=== PATIENT | female | born 1945 | race Caucasian/White ===

== ENCOUNTER → 2016-10-06 | Outpatient (CLI) | payer OTHER ==
[~2016-10-06] MED LIST: ASCO500T16 PO; HYDR25TA5 PO; LOSA50TA6 PO; POTA20TA16 PO; PRAV20TA PO; SITA50TA3 PO; TAMO20TA47 PO
[2016-10-06 13:16] VITALS: BP 127/81; PULSE 72; TEMP 37.2; O2SAT 96
--- NOTE | 2016-10-06 14:38 | Radiation Oncology Follow-Up ---
Radiation Oncology Follow-Up Date of Visit Oct 06, 2016. Reason For Visit Annual follow-up Radiation Completion Date APBI 11/29/13 Diagnosis (1) Stage I breast cancer Status: Resolved Onset Date: 09/24/2013 Stage: l Permanent Comment: Abnormal right breast mammogram Status post tear detected biopsy 09/24/2013 revealing invasive ductal carcinoma Status post partial mastectomy and sentinel lymph node biopsy 10/11/2013 Stage [id number], estrogen receptor positive, progesterone receptor positive, HER -2/reynaldo negative Status post completion of radiation therapy utilizing accelerated partial breast treatment completed 11/29/2013 received 3850 cGy Last Edited By: Danielle Hernandez on Jul 23, 2014 16:18 History of Present Illness Ms. Wright is a 70-year-old female who has been followed with screening mammograms. A recent mammogram performed at [facility] on 08/26/2013 revealed an abnormality in the upper-outer quadrant of the right breast. Spot films were recommended and performed on 09/03/2013. This showed a 5 mm density in the upper-outer quadrant of the right breast and was given a BI-RADS Category 4 with recommended biopsy. For that reason the patient was seen in referral by Dr. Sanju Aragon on 2013. The patient had no family history of breast cancer. Dr. Aragon recommended a stereotactic core needle biopsy and the patient agreed. On 09/24/2013 patient underwent a stereotactic biopsy. This revealed an invasive ductal carcinoma Natali grade 1 involving multiple cores measuring at least 0.7 cm in greatest dimension. 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 Estrogen receptors were positive at greater than 95% and progesterone receptors were positive at 95%. HER-2/reynaldo was negative with a score of 0. HER-2/reynaldo by FISH was also negative. There was no necrosis associated with the DCIS. Case: [id number]. After discussion of treatment options the patient chose to proceed with breast conserving therapy. Therefore on 10/11/2013 Dr. Aragon performed a right partial mastectomy and sentinel lymph node biopsy. These sentinel lymph node revealed no metastatic carcinoma. The partial mastectomy site tissue revealed no residual carcinoma identified. The margins were obviously negative. The final stage was therefore pT1b pN0 ER positive [place] positive HER-2/reynaldo negative. Case: [id number]. There is no role for systemic chemotherapy. The patient is to proceed with adjuvant hormonal therapy following the completion of her radiation. She returned and underwent a CT simulation. She was found to be a candidate for accelerated partial breast treatment. Radiation was completed 11/29/2013 she received 3850 cGy. Interim History She's been doing well over the past year. She denies any changes to her breast. She is noted no masses or tenderness no change in the axilla she's had no swelling of her arm. She is up-to-date on mammography. She continues to have hot flashes. This occurs especially at night. She tried vitamin E but that did not help. She had a mammogram at [facility] in [place] 2016. There is no evidence of malignancy. BI-RADS Category 2. She continues on tamoxifen. Allergies Coded Allergies: No Known Allergies (Unverified , 01/22/14) Home Medications Scheduled Ascorbic Acid (Ascorbic Acid), 500 MG PO DAILY Hydrochlorothiazide (Hydrochlorothiazide), 25 MG PO DAILY Losartan Potassium (Cozaar), 50 MG PO DAILY Potassium Ext Rel (Klor-Con), 20 MEQ PO DAILY Pravastatin (Pravachol ), 40 MG PO DAILY Sitagliptin (Januvia), 50 MG PO DAILY Tamoxifen (Nolvadex), 10 MG PO DAILY Review of Systems Gastrointestinal: Symptoms: WNL Oral: Symptoms: No Problems Respiratory: Symptoms: WNL Urinary: Symptoms: WNL Comments: stress incontinence Skin: Symptoms: No Problems Other Skin Symptoms: See below notations Breast: Right Upper Arm Measurement: 32.0 Right Mid Arm Measurement: 27.5 Right Wrist Measurement: 16.5 Left Upper Arm Measurement: 30.5 Left Mid Arm Measurement: 26.5 Left Wrist Measurement: 16.5 Arm Dominence: Right Patient Cosmetic Evaluation: Good Staff Cosmetic Evalaluation: Good Physical Exam Vital Signs Date Time Temp Pulse Resp B/P (MAP) Pulse Ox O2 Delivery O2 Flow Rate FiO2 10/06/16 13:16 37.2 72 20 127/81 96 Pain: Side: Bilateral Pain Location: None Patient Pain Scale: 0 - 10 Initial Pain Intensity: 0.0 Fatigue: None General Appearance: no apparent distress Eyes: normal inspection, EOMI ENT: normal ENT inspection Neck: no adenopathy, thyroid normal Respiratory/Chest: lungs clear, no respiratory distress, no accessory muscle use Breast: She has a well-healed incisions of the right breast. There are no masses or tenderness no axillary adenopathy. She has fibrocystic changes in the area of the incision. She also has an oval area of hyperpigmentation and mild telangiectasia. Using the Harned score cosmesis she has a fair outcome. The left breast showed no masses or tenderness and no axillary adenopathy. Cardiovascular: regular rate, rhythm, no gallop, no murmur Extremities: no pedal edema Neurologic/Psychiatric: no motor/sensory deficits, alert, normal mood/affect Skin: warm/dry Lymphatic: no adenopathy Additional Studies Mammography as reviewed above. Performed on 10/08/2016. Assessment & Plan Plan: Continue regular follow-up with her breast surgeon and primary care provider. Continue mammography on a yearly basis. She continues on tamoxifen. We asked her to return to our office in 1 year. She may call if she has any questions or concerns in the interim. Total Time In Follow-Up I spent 20 minutes speaking to the patient performing examination. I spent 15 minutes reviewing information and completeness note. Copy To Sanju Aragon M.D.; Gayle Rivera Problem Qualifiers (1) Stage I breast cancer: Estrogen receptor status: positive Laterality: right Qualified Codes: C50.911 - Malignant neoplasm of unspecified site of right female breast; Z17.0 - Estrogen receptor positive status [ER+]
== END | disposition home or self-care (01) ==
LOC: C.ONC 12:45
PROVIDERS: ATTEND Physician Assistant Medical
DX: Z08 Encounter for follow-up examination after completed treatment for malignant neoplasm (principal); Z92.3 Personal history of irradiation; Z85.3 Personal history of malignant neoplasm of breast

== ENCOUNTER → 2017-10-04 | Outpatient (CLI) | payer OTHER ==
[~2017-10-04] MED LIST changes: +POTA-639 PO; -POTA20TA16 PO; -TAMO20TA47 PO; +TAMO20TA9 PO
[2017-10-04 13:23] VITALS: BP 131/83; PULSE 68; TEMP 37; O2SAT 95
--- NOTE | 2017-10-04 13:54 | Radiation Oncology Follow-Up ---
Radiation Oncology Follow-Up Date of Visit Oct 04, 2017. Reason For Visit annual follow up Radiation Completion Date 11/29/13 Diagnosis (1) Stage I breast cancer Status: Resolved Onset Date: 09/24/2013 Histology Subtype: ductal Permanent Comment: Abnormal right breast mammogram Status post biopsy 09/24/2013 revealing invasive ductal carcinoma Status post partial mastectomy and sentinel lymph node biopsy 10/11/2013 Stage [id number], estrogen receptor positive, progesterone receptor positive, HER -2/reynaldo negative Status post completion of radiation therapy utilizing accelerated partial breast treatment completed 11/29/2013 received 3850 cGy Last Edited By: Danielle Hernandez on Oct 04, 2017 13:48 History of Present Illness Ms. Wright has been followed with screening mammograms. A recent mammogram performed at [facility] on 08/26/2013 revealed an abnormality in the upper-outer quadrant of the right breast. Spot films were recommended and performed on 09/03/2013. This showed a 5 mm density in the upper-outer quadrant of the right breast and was given a BI-RADS Category 4 with recommended biopsy. For that reason the patient was seen in referral by Dr. Sanju Aragon on 2013. The patient had no family history of breast cancer. Dr. Aragon recommended a stereotactic core needle biopsy and the patient agreed. On 09/24/2013 patient underwent a stereotactic biopsy. This revealed an invasive ductal carcinoma Natali grade 1 involving multiple cores measuring at least 0.7 cm in greatest dimension. 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 Estrogen receptors were positive at greater than 95% and progesterone receptors were positive at 95%. HER-2/ryenaldo was negative with a score of 0. HER-2/reynaldo by FISH was also negative. There was no necrosis associated with the DCIS. Case: [id number]. After discussion of treatment options the patient chose to proceed with breast conserving therapy. Therefore on 10/11/2013 Dr. Aragon performed a right partial mastectomy and sentinel lymph node biopsy. These sentinel lymph node revealed no metastatic carcinoma. The partial mastectomy site tissue revealed no residual carcinoma identified. The margins were obviously negative. The final stage was therefore pT1b pN0 ER positive [place] positive HER-2/reynaldo negative. Case: [id number]. There is no role for systemic chemotherapy. The patient is to proceed with adjuvant hormonal therapy following the completion of her radiation. She returned and underwent a CT simulation. She was found to be a candidate for accelerated partial breast treatment. Radiation was completed 11/29/2013 she received 3850 cGy. Interim History She has been doing well over the past year. She denies any changes to her breast. She is noted no masses or tenderness and no change of the axilla. She has had no swelling of her arm. She is up-to-date on mammography. She continues on tamoxifen. She denies any side effects to the medication. She had been previously followed by breast surgeon. He has now retired. Allergies Coded Allergies: No Known Allergies (Unverified , 01/22/14) Home Medications Scheduled Ascorbic Acid (Ascorbic Acid), 500 MG PO DAILY Hydrochlorothiazide (Hydrochlorothiazide), 25 MG PO DAILY Losartan Potassium (Cozaar), 50 MG PO DAILY Potassium Ext Rel (Klor-Con), 20 MEQ PO DAILY Pravastatin (Pravachol ), 40 MG PO DAILY Sitagliptin (Januvia), 50 MG PO DAILY Tamoxifen (Nolvadex), 10 MG PO DAILY Review of Systems Gastrointestinal: Symptoms: WNL Oral: Symptoms: No Problems Respiratory: Symptoms: WNL Urinary: Symptoms: WNL Skin: Symptoms: No Problems Breast: Right Upper Arm Measurement: 29.5 Right Mid Arm Measurement: 24.0 Right Wrist Measurement: 16.5 Left Upper Arm Measurement: 28.0 Left Mid Arm Measurement: 24.5 Left Wrist Measurement: 16.5 Arm Dominence: Right Patient Cosmetic Evaluation: Excellent Staff Cosmetic Evalaluation: Excellent Physical Exam Vital Signs Date Time Temp Pulse Resp B/P (MAP) Pulse Ox O2 Delivery O2 Flow Rate FiO2 10/04/17 13:23 37.0 68 16 131/83 95 Fatigue: None General Appearance: no apparent distress Eyes: normal inspection, EOMI ENT: normal ENT inspection, hearing grossly normal Neck: no adenopathy, thyroid normal Respiratory/Chest: lungs clear, no respiratory distress, no accessory muscle use Breast: Breast examination reveals well-healed incisions of the right breast. There are no masses or tenderness and no axillary adenopathy. She does have telangiectasia and post radiation changes noted in the upper outer portion of the breast. Using the Beaman score cosmesis she has a fair outcome. There are minimal fibrous changes. Left breast showed no masses or tenderness and no axillary adenopathy. Cardiovascular: regular rate, rhythm, no gallop, no murmur Extremities: no pedal edema Neurologic/Psychiatric: no motor/sensory deficits, alert, normal mood/affect Skin: warm/dry Lymphatic: no adenopathy Pain Management Patient Reports Pain: No Initial Pain Intensity: 0.0 Pain Management Plan She denies pain therefore requires no pain management. Laboratory Laboratory Results: were reviewed, and pertinent findings noted in HPI Pathology Pathology Results: were reviewed, and pertinent findings noted in HPI Imaging Imaging Studies: were reviewed, and pertinent findings noted below Imaging Comments She had a mammogram at [facility]. This showed stable treatment changes of the right breast. No evidence for new or recurrent malignancy in either breast. This was given a BI-RADS Category 0. I did place a call to the mammography center to review the BI-RADS interpretation. This is stating additional evaluation is needed. The radiologist is going to call me back tomorrow. He is not in today. Assessment & Plan Plan: Continue with annual mammography. I will be speaking to the radiologist tomorrow in regards to the BI-RADS interpretation. She will be notified as to those results. We discussed the radiation changes in the upper outer quadrant. She continues on tamoxifen. She has been discharged from the breast surgeon. Medications being refilled by the primary provider. The breast surgeon recommended that she continue the medication for 5 years. This will end of November 2018. She has been reminded of this state. Will remind her again next year at her follow-up visit. We will likely then discharge her from our office to be followed by the primary provider. Total Time In Follow-Up I spent 20 minutes speaking to the patient in performing examination. I spent 15 minutes reviewing information and completing this note. Copy To Joselo Hastings M.D. Problem Qualifiers (1) Stage I breast cancer: Estrogen receptor status: positive Laterality: right Qualified Codes: C50.911 - Malignant neoplasm of unspecified site of right female breast; Z17.0 - Estrogen receptor positive status [ER+]
== END | disposition home or self-care (01) ==
LOC: C.ONC 12:49
PROVIDERS: ATTEND Physician Assistant Medical
DX: Z08 Encounter for follow-up examination after completed treatment for malignant neoplasm (principal); Z92.3 Personal history of irradiation; Z85.3 Personal history of malignant neoplasm of breast

== ENCOUNTER 2023-07-20 22:20 | Observation (INO) ==
[2023-07-20 23:22] LABS: Basophils # (auto) 0.04 K/uL (0.00-0.20); Basophils % (auto) 0.5 %; Eosinophils # (auto) 0.13 K/uL (0.00-0.50); Eosinophils % (auto) 1.7 %; Hematocrit (blood only) 41.8 % (37.0-47.0); Immature Granulocytes # (auto) 0.02 K/uL (0.01-0.20); Immature Granulocytes % (auto) 0.3 %; Lymphocytes # (auto) 2.46 K/uL (1.20-3.40); Lymphocytes % (auto) 32.8 %; Mean Corpuscular Hemoglobin 29.9 pg (25.0-34.0); Mean Corpuscular Hgb Conc 33.5 g/dL (32.0-36.0); Mean Corpuscular Volume 89.3 fL (80.0-100.0); Mean Platelet Volume 11.1 fL (9.4-12.4); Monocytes # (auto) 0.72 K/uL (0.11-0.59); Monocytes % (auto) 9.6 %; Neutrophils # (auto) 4.12 K/uL (1.40-6.50); Neutrophils % (auto) 55.1 %; Platelet Count 161 K/uL (130-400); RDW Standard Deviation 41.8 fL (36.4-46.3); Red Blood Count 4.68 M/uL (4.20-5.40); White Blood Count 7.49 K/ul (4.8-10.8)
[2023-07-20 23:23] LABS: BUN Creatinine Ratio 16.3 (10-20); Bilirubin,Total 0.6 mg/dl (0.2-1.0); Calcium 8.7 mg/dl (8.6-10.3); Creatinine Clr Calc Pharmacy 50.4 ml/min; Est GFR (African American) 59.6 ml/min; Est GFR (Non-African American) 51.4 ml/min; Globulin 3.9 gm/dl (2.5-4.0); Magnesium 2.1 mg/dl (1.7-2.4); Potassium 3.9 mmol/L (3.5-5.1); Total Protein 7.9 gm/dl (6.0-8.3)
[2023-07-20 23:29] LABS: Troponin I High Sensitivity 5.2 pg/ml (0-14)
--- NOTE | 2023-07-20 23:36 | Emergency Department Note ---
Impression & Plan Brain TIA ED Provider Note HISTORY OF PRESENT ILLNESS: Patient is a 77-year-old female presenting with right facial droop and numbness in her right hand. Patient reports that 24 hours ago she had similar symptoms and had presented to [facility] and was admitted for 24 hours for stroke workup. Reports that she initially had CT scans done that were reportedly showing a stroke, but she was told today by the hospitalist after her MRI that her MRI did not show any evidence of stroke. She was given 75 mg of Plavix as a loading dose, but she has not discharged with Plavix today. She was discharged around 8 AM and states that around noon today she got home and was going about her daily activities when at 2000 tonight she was getting ready for bed and she developed a left-sided headache, right-sided facial droop and tingling in her right fifth and fourth finger. Reports that symptoms are still present on my assessment at 2330. She denies any chest pain or shortness of breath. She is on a baby aspirin daily. Denies any recent falls or head injuries. ROS: as above PHYSICAL EXAM: Constitutional: Patient appears in no acute distress. HENT: Head: Normocephalic and atraumatic. Eyes: EOMI, PERRL Mouth/Throat: Mucous membranes moist. Neck: Trachea midline. Neck supple. Cardiovascular: RRR, No murmurs, rubs or gallops. Intact distal pulses. Pulmonary/Chest: No respiratory distress. Breath sounds clear and equal bilaterally. No wheezes or rales. Abdominal: Abdomen soft, no tenderness, rebound or guarding. Musculoskeletal: No edema, tenderness or deformity noted. Skin: Warm and dry. No rash, erythema, pallor or cyanosis Psychiatric: Appropriate mood and affect for situation. Neurological: Alert and keenly responsive. Facies symmetric. Able to raise eyebrows, close eyes, smile, puff mouth, stick out tongue, move tongue left and right and raise palate symmetrically. Able to shrug shoulders. PERRLA. SILT to forehead below eye and at jawline. Can hear soft noise bilaterally. Strength 5/5 in bilateral upper and lower extremities. SILT throughout bilateral upper and lower extremities. MDM: - Vitals signs showed hypertension and bradycardia - History obtained via patient. History as above. - Chronic conditions affecting care: HTN; GERD; DM-2; breast cancer - Differential diagnoses include, but are not limited to: TIA; CVA; ACS; pneumonia; dysrhythmia; electrolyte abnormality - Order placed for continuous cardiac monitoring. At this time, monitor showed rate of 63 bpm with normal sinus rhythm, per my interpretation. - External medical records reviewed. Radiation oncology visit note dated 10/02/2018 was reviewed. Patient follows in their clinic after receiving breast cancer diagnosis. - EKG interpreted by myself showed normal sinus rhythm. Rate bradycardic at 56 bpm. QT 500. No acute ischemic changes. - Laboratory workup interpreted by myself showed normal WBC; normal PT/INR; stable electrolytes; normal troponin - CT brain wo contrast negative for acute pathology - CTA head/neck negative for acute pathology - Given patient's repeat symptoms in <16 hours post discharge from another facility, will admit for further workup. Patient was not discharged on Plavix at the outside facility, she may benefit from this. - Discussion was had with correctional casework specialist about patient's case and need for admission - Hospitalist consulted for admission - [facility]. ASSESSMENT AND PLAN: Diagnosis: TIA Plan: admit Past Med/Surg History Problem List (Updated 10/05/17 @ 19:11 by [employer]) Brain TIA (Acute) Glaucoma (Chronic) GERD (gastroesophageal reflux disease) (Chronic) Hypertension (Chronic) Fatty liver disease, nonalcoholic (Chronic) Diabetes mellitus (Chronic) Status post right breast lumpectomy (Acute 10/14/13) Social History Smoking Status: Former smoker Preferred Language: Hungarian Allergies Allergies Allergy/AdvReac Type Severity Reaction Status Date / Time No Known Allergies Allergy Verified 07/20/23 23:33 Home Meds Home Medications Medication Instructions Recorded Confirmed ascorbic acid (vitamin C) 500 mg 500 mg PO DAILY 07/20/23 07/20/23 tablet (Vitamin C) aspirin 81 mg chewable tablet 81 mg PO DAILY 07/20/23 07/20/23 docusate sodium 100 mg capsule 100 mg PO DAILY 07/20/23 07/20/23 glimepiride 1 mg tablet 1 mg PO DAILY 07/20/23 07/20/23 hydrochlorothiazide 25 mg tablet 25 mg PO DAILY 07/20/23 07/20/23 loratadine 10 mg tablet 10 mg PO HS 07/20/23 07/20/23 losartan 50 mg tablet 50 mg PO DAILY 07/20/23 07/20/23 metoprolol succinate 25 mg 25 mg PO DAILY 07/20/23 07/20/23 tablet,extended release 24 hr omeprazole 20 mg tablet,delayed 20 mg PO DAILY PRN 07/20/23 07/20/23 release HEARTBURN/INDIGESTION potassium chloride 20 mEq 20 meq PO DAILY 07/20/23 07/20/23 tablet,extended release(part/cryst) pravastatin 40 mg tablet 40 mg PO HS 07/20/23 07/20/23 sitagliptin phosphate 100 mg 50 mg PO DAILY 07/20/23 07/20/23 tablet (Januvia) Results & Data (ED) Vital Signs Vital Signs - 24 hr 07/20/23 22:25 07/20/23 22:25 07/20/23 22:30 Temperature 36.6 C Temperature Source Oral Pulse Rate 59 L 57 L 56 L Pulse Rate from SpO2 Sensor 56 L Respiratory Rate 18 20 Respiratory Effort / Characteristics Non-Labored Respiratory Depth Normal Blood Pressure 152/95 H 152/95 H Blood Pressure Mean 114 114 Pulse Oximetry 94 98 Oxygen Delivery Method Room Air Room Air Sepsis Recent Fever Within 48 Hours No Sepsis New/Unexplained Change in Mental Status No Sepsis Action Taken by Nursing No Action Required 07/20/23 22:33 07/20/23 22:40 07/20/23 23:00 Temperature Temperature Source Pulse Rate 57 L 56 L Pulse Rate from SpO2 Sensor 58 L 55 L Respiratory Rate 20 19 Respiratory Effort / Characteristics Respiratory Depth Blood Pressure 133/82 114/64 Blood Pressure Mean 99 80 Pulse Oximetry 96 95 Oxygen Delivery Method Room Air Sepsis Recent Fever Within 48 Hours Sepsis New/Unexplained Change in Mental Status Sepsis Action Taken by Nursing 07/20/23 23:37 07/21/23 00:00 Temperature Temperature Source Pulse Rate 63 Pulse Rate from SpO2 Sensor 65 Respiratory Rate 18 Respiratory Effort / Characteristics Respiratory Depth Blood Pressure 133/77 Blood Pressure Mean 95 Pulse Oximetry 97 Oxygen Delivery Method Room Air Room Air Sepsis Recent Fever Within 48 Hours Sepsis New/Unexplained Change in Mental Status Sepsis Action Taken by Nursing Laboratory Data 07/20/23 22:41 07/20/23 22:41 Lab Results 07/20/23 Range/Units 22:41 WBC 7.49 (4.8-10.8) K/ul RBC 4.68 (4.20-5.40) M/uL Hgb 14.0 (12.0-16.0) g/dl Hct 41.8 (37.0-47.0) % MCV 89.3 (80.0-100.0) fL MCH 29.9 (25.0-34.0) pg MCHC 33.5 (32.0-36.0) g/dL RDW Std Deviation 41.8 (36.4-46.3) fL RDW Coeff of Martha 13.0 (11.5-14.5) % Plt Count 161 (130-400) K/uL MPV 11.1 (9.4-12.4) fL Immature Gran % (Auto) 0.3 % Neut % (Auto) 55.1 % Lymph % (Auto) 32.8 % Stoddard % (Auto) 9.6 % Eos % (Auto) 1.7 % Baso % (Auto) 0.5 % Neut # (Auto) 4.12 (1.40-6.50) K/uL Lymph # (Auto) 2.46 (1.20-3.40) K/uL Stoddard # (Auto) 0.72 H (0.11-0.59) K/uL Eos # (Auto) 0.13 (0.00-0.50) K/uL Baso # (Auto) 0.04 (0.00-0.20) K/uL Immature Gran # (Auto) 0.02 (0.01-0.20) K/uL PT 11.7 (9.0-12.0) Seconds INR 1.1 (0.9-1.1) Sodium 139 (136-145) mmol/L Potassium 3.9 (3.5-5.1) mmol/L Chloride 102 (98-107) mmol/L Carbon Dioxide 30 (21-32) mmol/L Anion Gap 7 (3-11) BUN 17 (6-23) mg/dl Creatinine 1.04 (0.6-1.2) mg/dl Est Cr Clr Drug Dosing 50.4 ml/min Est GFR ( Amer) 59.6 ml/min Est GFR (Non-Af Amer) 51.4 ml/min BUN/Creatinine Ratio 16.3 (10-20) Glucose 123 H (70-99(Fasting)) mg/dl Calcium 8.7 (8.6-10.3) mg/dl Magnesium 2.1 (1.7-2.4) mg/dl Total Bilirubin 0.6 (0.2-1.0) mg/dl AST 24 (13-39) U/L ALT 19 (7-52) U/L Alkaline Phosphatase 64 (34-104) U/L Troponin I High Sens 5.2 (0-14) pg/ml Total Protein 7.9 (6.0-8.3) gm/dl Albumin 4.0 (3.4-5.0) gm/dl Globulin 3.9 (2.5-4.0) gm/dl Albumin/Globulin Ratio 1.0 (0.9-2) Administered Medications Discontinued Medications Ioversol (Optiray 320 125ml) 125 ml IV ONCE ONE Stop: 07/20/23 23:44 Last Admin: 07/20/23 23:43 Dose: 118 ml Documented By: ANJANA Imaging Data Radiologist's Impression: Head CT 07/20/23 23:04 CR Exam(s): CT HEAD Without Contrast EXAM: CT Head Without Intravenous Contrast CLINICAL HISTORY: Reason for exam: TIA. TECHNIQUE: Axial computed tomography images of the head/brain without intravenous contrast. Automated exposure control was utilized for the study. A dose lowering technique was utilized adhering to the principles of ALARA. COMPARISON: None. FINDINGS: Brain: No mass effect or acute infarct. No acute hemorrhage. Mild atrophy and chronic white matter disease. Ventricles: No hydrocephalus or midline shift. Bones/joints: No acute bony lesion. Soft tissues: No scalp hematoma. Visualized Sinuses: Clear. Mastoid air cells: No mastoid effusion. IMPRESSION: 1. Mild age-related findings. 2. No acute infarct, bleed, or acute intracranial abnormality. Communications: Call Doctor Stroke Electronically signed by: Sheela Rouse M.D. 07/20/23 23:48 PM Head CTA 07/20/23 23:24 CR Exam(s): CTA HEAD With Contrast IV Amt: 118 cc opti 320 EXAM: CT Angiography Head With Intravenous Contrast CLINICAL HISTORY: Reason for exam: TIA. TECHNIQUE: Axial computed tomographic angiography images of the head with intravenous contrast. CTDI is 30 mGy and DLP is 472.91 mGy-cm. Automated exposure control was utilized for the study. A dose lowering technique was utilized adhering to the principles of ALARA. MIP reconstructed images were created and reviewed. Mild venous contamination. CONTRAST: IV contrast is given. COMPARISON: None. FINDINGS: Right internal carotid artery: Patent. Right anterior cerebral artery: Patent. Aplastic or hypoplastic A1 segment Right middle cerebral artery: Patent. Right posterior cerebral artery: Patent. Right vertebral artery: Patent. Left internal carotid artery: Patent. Left anterior cerebral artery: Patent. Left middle cerebral artery: Patent. Left posterior cerebral artery: Patent. Left vertebral artery: Patent. Basilar artery: Patent. Other: Mild atherosclerosis bilateral cavernous ICA, without significant stenosis. Patent dural venous sinuses. IMPRESSION: 1. No aneurysm or large vessel occlusion. Communications: Call Doctor Stroke Electronically signed by: Sheela Rouse M.D. 07/21/23 00:02 AM Neck CTA 07/20/23 23:24 CR Exam(s): CTA NECK With Contrast IV Amt: 118 cc opti 320 EXAM: CT Angiography Neck With Intravenous Contrast CLINICAL HISTORY: Reason for exam: TIA. TECHNIQUE: Routine carotid CT angiography protocol was performed with intravenous contrast. NASCET criteria using the distal ICAs for comparison were used for evaluation of stenoses. CTDI is 30 mGy and DLP is 472.91 mGy-cm. Automated exposure control was utilized for the study. A dose lowering technique was utilized adhering to the principles of ALARA. MIP reconstructed images were created and reviewed. CONTRAST: IV contrast is given. COMPARISON: None. FINDINGS: Right common carotid artery: Patent. Right internal carotid artery: Patent. Right vertebral artery: Patent. Left common carotid artery: Patent. Left internal carotid artery: Patent. Left vertebral artery: Patent. Codominant. Other: No significant carotid atherosclerosis or stenosis. 4 mm right upper lobe pulmonary nodule, partially seen on the first image. IMPRESSION: 1. No dissection, occlusion, or significant stenosis. CAROTID STENOSIS REFERENCE USING NASCET CRITERIA: % ICA stenosis = (1 - narrowest ICA diameter/diameter of distal cervical ICA) x 100. Mild - <50% stenosis. Moderate - 50-69% stenosis. Severe - 70-94% stenosis. Near occlusion - 95-99% stenosis. Occluded - 100% stenosis. Communications: Call Doctor Stroke Electronically signed by: Sheela Rouse M.D. 07/21/23 00:02 AM Discharge Plan Visit Data Chief Complaint: Stroke/CVA Symptoms Stated Complaint: Resolved Facial Droop, Slurred Speech ED Provider: Kendra Ashton Discharge Problem: Brain TIA Forms Stand Alone Forms: My [facility] Prescriptions Prescriptions: No Action losartan 50 mg tablet 50 mg PO DAILY pravastatin 40 mg tablet 40 mg PO HS glimepiride 1 mg tablet 1 mg PO DAILY potassium chloride 20 mEq tablet,ER particles/crystals 20 meq PO DAILY ascorbic acid (vitamin C) [Vitamin C] 500 mg Tablet 500 mg PO DAILY docusate sodium 100 mg Capsule 100 mg PO DAILY aspirin 81 mg Tablet,Chewable 81 mg PO DAILY hydrochlorothiazide 25 mg tablet 25 mg PO DAILY metoprolol succinate 25 mg tablet extended release 24 hr 25 mg PO DAILY loratadine 10 mg tablet 10 mg PO HS Januvia 100 mg tablet 50 mg PO DAILY omeprazole 20 mg Tablet,Delayed Release (Dr/Ec) 20 mg PO DAILY PRN (Reason: HEARTBURN/INDIGESTION) Referrals Referrals: Yanira Mo CRNP [Primary Care Provider] -
[2023-07-20 23:43] LABS: INR 1.1 (0.9-1.1); Prothrombin Time 11.7 Seconds (9.0-12.0)
[2023-07-20] MEDS: OPTIRAY 320 125ml IV ONE (23:43)
--- NOTE | 2023-07-20 23:48 | CT Scan Report ---
Exam(s): CT HEAD Without Contrast EXAM: CT Head Without Intravenous Contrast CLINICAL HISTORY: Reason for exam: TIA. TECHNIQUE: Axial computed tomography images of the head/brain without intravenous contrast. Automated exposure control was utilized for the study. A dose lowering technique was utilized adhering to the principles of ALARA. COMPARISON: None. FINDINGS: Brain: No mass effect or acute infarct. No acute hemorrhage. Mild atrophy and chronic white matter disease. Ventricles: No hydrocephalus or midline shift. Bones/joints: No acute bony lesion. Soft tissues: No scalp hematoma. Visualized Sinuses: Clear. Mastoid air cells: No mastoid effusion. IMPRESSION: 1. Mild age-related findings. 2. No acute infarct, bleed, or acute intracranial abnormality. Communications: Call Doctor Stroke Electronically signed by: Sheela Rouse M.D. 07/20/23 23:48 PM
--- NOTE | 2023-07-21 00:03 | CT Scan Report ---
Exam(s): CTA NECK With Contrast IV Amt: 118 cc opti 320 EXAM: CT Angiography Neck With Intravenous Contrast CLINICAL HISTORY: Reason for exam: TIA. TECHNIQUE: Routine carotid CT angiography protocol was performed with intravenous contrast. NASCET criteria using the distal ICAs for comparison were used for evaluation of stenoses. CTDI is 30 mGy and DLP is 472.91 mGy-cm. Automated exposure control was utilized for the study. A dose lowering technique was utilized adhering to the principles of ALARA. MIP reconstructed images were created and reviewed. CONTRAST: IV contrast is given. COMPARISON: None. FINDINGS: Right common carotid artery: Patent. Right internal carotid artery: Patent. Right vertebral artery: Patent. Left common carotid artery: Patent. Left internal carotid artery: Patent. Left vertebral artery: Patent. Codominant. Other: No significant carotid atherosclerosis or stenosis. 4 mm right upper lobe pulmonary nodule, partially seen on the first image. IMPRESSION: 1. No dissection, occlusion, or significant stenosis. CAROTID STENOSIS REFERENCE USING NASCET CRITERIA: % ICA stenosis = (1 - narrowest ICA diameter/diameter of distal cervical ICA) x 100. Mild - <50% stenosis. Moderate - 50-69% stenosis. Severe - 70-94% stenosis. Near occlusion - 95-99% stenosis. Occluded - 100% stenosis. Communications: Call Doctor Stroke Electronically signed by: Sheela Rouse M.D. 07/21/23 00:02 AM
--- NOTE | 2023-07-21 00:03 | CT Scan Report ---
Exam(s): CTA HEAD With Contrast IV Amt: 118 cc opti 320 EXAM: CT Angiography Head With Intravenous Contrast CLINICAL HISTORY: Reason for exam: TIA. TECHNIQUE: Axial computed tomographic angiography images of the head with intravenous contrast. CTDI is 30 mGy and DLP is 472.91 mGy-cm. Automated exposure control was utilized for the study. A dose lowering technique was utilized adhering to the principles of ALARA. MIP reconstructed images were created and reviewed. Mild venous contamination. CONTRAST: IV contrast is given. COMPARISON: None. FINDINGS: Right internal carotid artery: Patent. Right anterior cerebral artery: Patent. Aplastic or hypoplastic A1 segment Right middle cerebral artery: Patent. Right posterior cerebral artery: Patent. Right vertebral artery: Patent. Left internal carotid artery: Patent. Left anterior cerebral artery: Patent. Left middle cerebral artery: Patent. Left posterior cerebral artery: Patent. Left vertebral artery: Patent. Basilar artery: Patent. Other: Mild atherosclerosis bilateral cavernous ICA, without significant stenosis. Patent dural venous sinuses. IMPRESSION: 1. No aneurysm or large vessel occlusion. Communications: Call Doctor Stroke Electronically signed by: Sheela Rouse M.D. 07/21/23 00:02 AM
--- NOTE | 2023-07-21 01:55 | History & Physical Report ---
Date of Service July 21, 2023 Assessment & Plan (1) Brain TIA: Plan: Right facial droop persistent from admission at [facility] 2 days ago. Right face/RUE numbness currently resolved. Possible aspirin failure paroxysmal atrial fibrillation, patient NSR hypertension, stable hyperlipidemia on statin Rx DM 2 on oral medications, unknown baseline control R breast cancer status post surgery/radiation, in remission Subclinical hypothyroidism OBS Medical telemetry Neurochecks Add Plavix to aspirin for possible aspirin failure Continue statin Rx Unfortunately patient adamantly refusing repeat brain MRI given stroke concerns. Repeat CT head [address] done at the ER. Neurology consult Re: CVA ISS BG goal 1 10-1 40, carb count coverage, check hemoglobin A1c Update lipid profile Initiate levothyroxine and recheck TSH outpatient next month DVT prophylaxis. Lovenox subcu Full code Patient daughter requesting updates providers. Ms. Jane Sexton, contact #[phone]. Text document was generated using [employer] voice recognition software. It may contain grammatical or spelling errors. Kindly contact undersigned for clarification of any documentation item in question. History of Present Illness Chief Complaint: Transient right face, right arm numbness Primary Care Provider: ARCHANA Sheth History obtained from patient, family, and records. Medical history significant for paroxysmal atrial fibrillation, hypertension, hyperlipidemia, DM 2 on oral medications, NAFLFD, right breast cancer status post surgery/radiation. Patient noted by granddaughter to have droopy right side of the face 2 days ago. Right arm and right leg later noted to be weak. Patient not sure if she really had right-sided weakness. Patient brought to [facility] ER by family. Initially given Plavix for stroke, possible aspirin failure as per family. Confined overnight. No stroke on MRI as per family. Plavix discontinued as per family. Minimal right lip droop as per daughter although right-sided arm and leg weakness much improved. Patient discharged home because patient wanted to go home although patient still not feeling well as per admission. At home yesterday, patient noted transient right face and right upper arm numbness. Right lip felt funny as per patient. Left-sided headache symptoms as per patient. Patient currently comfortable at the ER. Medical History as above Surgical History : Cholecystectomy, hysterectomy, sinus surgery, breast surgery Family History : Breast cancer, heart disease, leukemia Personal/Social history : Non-smoker, no EtOH intake, homemaker in her younger years Allergies Allergy/AdvReac Type Severity Reaction Status Date / Time No Known Allergies Allergy Verified 07/20/23 23:33 Home Medications Medication Instructions Recorded Confirmed Type ascorbic acid (vitamin C) 500 mg 500 mg PO DAILY 07/20/23 07/20/23 History tablet (Vitamin C) aspirin 81 mg chewable tablet 81 mg PO DAILY 07/20/23 07/20/23 History docusate sodium 100 mg capsule 100 mg PO DAILY 07/20/23 07/20/23 History glimepiride 1 mg tablet 1 mg PO DAILY 07/20/23 07/20/23 History hydrochlorothiazide 25 mg tablet 25 mg PO DAILY 07/20/23 07/20/23 History loratadine 10 mg tablet 10 mg PO HS 07/20/23 07/20/23 History losartan 50 mg tablet 50 mg PO DAILY 07/20/23 07/20/23 History metoprolol succinate 25 mg 25 mg PO DAILY 07/20/23 07/20/23 History tablet,extended release 24 hr omeprazole 20 mg tablet,delayed 20 mg PO DAILY PRN 07/20/23 07/20/23 History release HEARTBURN/INDIGESTION potassium chloride 20 mEq 20 meq PO DAILY 07/20/23 07/20/23 History tablet,extended release(part/cryst) pravastatin 40 mg tablet 40 mg PO HS 07/20/23 07/20/23 History sitagliptin phosphate 100 mg 50 mg PO DAILY 07/20/23 07/20/23 History tablet (Januvia) apixaban 5 mg tablet (Eliquis) 5 mg PO BID 30 days #60 tabs 07/21/23 Rx Past Med/Surg History Problem List (Updated 10/05/17 @ 19:11 by ABODO Ri) Brain TIA (Acute) Glaucoma (Chronic) GERD (gastroesophageal reflux disease) (Chronic) Hypertension (Chronic) Fatty liver disease, nonalcoholic (Chronic) Diabetes mellitus (Chronic) Status post right breast lumpectomy (Acute 10/14/13) Social History Smoking Status: Never smoker Hx Alcohol Use: No Hx Substance Use: No Preferred Language: Japanese Communication Ability: Effective Realtime Reporter Required: No Beliefs That Will Affect Care: None Current Living Situation: Family Current Living Situation Comment: with sons Other Information That Helps Us Care for You: No Feels Safe at Home: Yes Safety Concerns: Feels Safe At This Time Assistive Devices: Denture - Upper and Glasses Review of Systems Review of Systems: As per HPI, all other systems reviewed and negative Physical Exam Physical Exam: GENERAL: Comfortable, pleasant, slightly anxious, no respiratory distress SKIN: Normal color, warm HEENT: [place] palpebral conjunctivae, no ptosis, right nasolabial fold flattening, moist buccal mucosa NECK : Supple, no tenderness CHEST : CTA, no tenderness HEART : Bradycardic, no obvious murmurs ABDOMEN: no distention, nontender EXTREMITIES : No LE swelling/tenderness, no other conspicuous deformities noted NEUROLOGIC : Coherent, right lip symmetry, MMTS BUE/BLE 5/5 Results & Data Results & Data Vital Signs (Past 12 Hours) Vital Signs Temp Pulse Resp BP Pulse Ox O2 Del Method 07/21/23 00:00 63 18 133/77 97 Room Air 07/20/23 23:37 Room Air 07/20/23 23:00 56 L 19 114/64 95 07/20/23 22:40 57 L 20 133/82 96 07/20/23 22:33 Room Air 07/20/23 22:30 56 L 20 152/95 H 98 Room Air 07/20/23 22:25 57 L 07/20/23 22:25 36.6 C 59 L 18 152/95 H 94 Room Air Laboratory Results Laboratory Results WBC 7.49 K/ul (4.8-10.8) 07/20/23 22:41 RBC 4.68 M/uL (4.20-5.40) 07/20/23 22:41 Hgb 14.0 g/dl (12.0-16.0) 07/20/23 22:41 Hct 41.8 % (37.0-47.0) 07/20/23 22:41 MCV 89.3 fL (80.0-100.0) 07/20/23 22:41 MCH 29.9 pg (25.0-34.0) 07/20/23 22:41 MCHC 33.5 g/dL (32.0-36.0) 07/20/23 22:41 RDW Std Deviation 41.8 fL (36.4-46.3) 07/20/23 22:41 RDW Coeff of Martha 13.0 % (11.5-14.5) 07/20/23 22:41 Plt Count 161 K/uL (130-400) 07/20/23 22:41 MPV 11.1 fL (9.4-12.4) 07/20/23 22:41 Immature Gran % (Auto) 0.3 % 07/20/23 22:41 Neut % (Auto) 55.1 % 07/20/23 22:41 Lymph % (Auto) 32.8 % 07/20/23 22:41 [place] % (Auto) 9.6 % 07/20/23 22:41 Eos % (Auto) 1.7 % 07/20/23 22:41 Baso % (Auto) 0.5 % 07/20/23 22:41 Neut # (Auto) 4.12 K/uL (1.40-6.50) 07/20/23 22:41 Lymph # (Auto) 2.46 K/uL (1.20-3.40) 07/20/23 22:41 [place] # (Auto) 0.72 K/uL (0.11-0.59) H 07/20/23 22:41 Eos # (Auto) 0.13 K/uL (0.00-0.50) 07/20/23 22:41 Baso # (Auto) 0.04 K/uL (0.00-0.20) 07/20/23 22:41 Immature Gran # (Auto) 0.02 K/uL (0.01-0.20) 07/20/23 22:41 PT 11.7 Seconds (9.0-12.0) 07/20/23 22:41 INR 1.1 (0.9-1.1) 07/20/23 22:41 Sodium 139 mmol/L (136-145) 07/20/23 22:41 Potassium 3.9 mmol/L (3.5-5.1) 07/20/23 22:41 Chloride 102 mmol/L (98-107) 07/20/23 22:41 Carbon Dioxide 30 mmol/L (21-32) 07/20/23 22:41 Anion Gap 7 (3-11) 07/20/23 22:41 BUN 17 mg/dl (6-23) 07/20/23 22:41 Creatinine 1.04 mg/dl (0.6-1.2) 07/20/23 22:41 Est Cr Clr Drug Dosing 50.4 ml/min 07/20/23 22:41 Est GFR ( Amer) 59.6 ml/min 07/20/23 22:41 Est GFR (Non-Af Amer) 51.4 ml/min 07/20/23 22:41 BUN/Creatinine Ratio 16.3 (10-20) 07/20/23 22:41 Glucose 123 mg/dl (70-99(Fasting)) H 07/20/23 22:41 Calcium 8.7 mg/dl (8.6-10.3) 07/20/23 22:41 Magnesium 2.1 mg/dl (1.7-2.4) 07/20/23 22:41 Total Bilirubin 0.6 mg/dl (0.2-1.0) 07/20/23 22:41 AST 24 U/L (13-39) 07/20/23 22:41 ALT 19 U/L (7-52) 07/20/23 22:41 Alkaline Phosphatase 64 U/L (34-104) 07/20/23 22:41 Troponin I High Sens 5.2 pg/ml (0-14) 07/20/23 22:41 Total Protein 7.9 gm/dl (6.0-8.3) 07/20/23 22:41 Albumin 4.0 gm/dl (3.4-5.0) 07/20/23 22:41 Globulin 3.9 gm/dl (2.5-4.0) 07/20/23 22:41 Albumin/Globulin Ratio 1.0 (0.9-2) 07/20/23 22:[address] 07/20/23 23:04 CR Exam(s): CT HEAD Without Contrast EXAM: CT Head Without Intravenous Contrast CLINICAL HISTORY: Reason for exam: TIA. TECHNIQUE: Axial computed tomography images of the head/brain without intravenous contrast. Automated exposure control was utilized for the study. A dose lowering technique was utilized adhering to the principles of ALARA. COMPARISON: None. FINDINGS: Brain: No mass effect or acute infarct. No acute hemorrhage. Mild atrophy and chronic white matter disease. Ventricles: No hydrocephalus or midline shift. Bones/joints: No acute bony lesion. Soft tissues: No scalp hematoma. Visualized Sinuses: Clear. Mastoid air cells: No mastoid effusion. IMPRESSION: 1. Mild age-related findings. 2. No acute infarct, bleed, or acute intracranial abnormality. Communications: Call Doctor Stroke Electronically signed by: Sheela Rouse M.D. 07/20/23 23:48 PM Head CTA 07/20/23 23:24 CR Exam(s): CTA HEAD With Contrast IV Amt: 118 cc opti 320 EXAM: CT Angiography Head With Intravenous Contrast CLINICAL HISTORY: Reason for exam: TIA. TECHNIQUE: Axial computed tomographic angiography images of the head with intravenous contrast. CTDI is 30 mGy and DLP is 472.91 mGy-cm. Automated exposure control was utilized for the study. A dose lowering technique was utilized adhering to the principles of ALARA. MIP reconstructed images were created and reviewed. Mild venous contamination. CONTRAST: IV contrast is given. COMPARISON: None. FINDINGS: Right internal carotid artery: Patent. Right anterior cerebral artery: Patent. Aplastic or hypoplastic A1 segment Right middle cerebral artery: Patent. Right posterior cerebral artery: Patent. Right vertebral artery: Patent. Left internal carotid artery: Patent. Left anterior cerebral artery: Patent. Left middle cerebral artery: Patent. Left posterior cerebral artery: Patent. Left vertebral artery: Patent. Basilar artery: Patent. Other: Mild atherosclerosis bilateral cavernous ICA, without significant stenosis. Patent dural venous sinuses. IMPRESSION: 1. No aneurysm or large vessel occlusion. Communications: Call Doctor Stroke Electronically signed by: Sheela Rouse M.D. 07/21/23 00:02 AM Neck CTA 07/20/23 23:24 CR Exam(s): CTA NECK With Contrast IV Amt: 118 cc opti 320 EXAM: CT Angiography Neck With Intravenous Contrast CLINICAL HISTORY: Reason for exam: TIA. TECHNIQUE: Routine carotid CT angiography protocol was performed with intravenous contrast. NASCET criteria using the distal ICAs for comparison were used for evaluation of stenoses. CTDI is 30 mGy and DLP is 472.91 mGy-cm. Automated exposure control was utilized for the study. A dose lowering technique was utilized adhering to the principles of ALARA. MIP reconstructed images were created and reviewed. CONTRAST: IV contrast is given. COMPARISON: None. FINDINGS: Right common carotid artery: Patent. Right internal carotid artery: Patent. Right vertebral artery: Patent. Left common carotid artery: Patent. Left internal carotid artery: Patent. Left vertebral artery: Patent. Codominant. Other: No significant carotid atherosclerosis or stenosis. 4 mm right upper lobe pulmonary nodule, partially seen on the first image. IMPRESSION: 1. No dissection, occlusion, or significant stenosis. CAROTID STENOSIS REFERENCE USING NASCET CRITERIA: % ICA stenosis = (1 - narrowest ICA diameter/diameter of distal cervical ICA) x 100. Mild - <50% stenosis. Moderate - 50-69% stenosis. Severe - 70-94% stenosis. Near occlusion - 95-99% stenosis. Occluded - 100% stenosis. Communications: Call Doctor Stroke Electronically signed by: Sheela Rouse M.D. 07/21/23 00:02 AM Diagnostic Findings EKG as per my interpretation : Rate 55, sinus bradycardia, LAD, LSB, LVH, nonspecific T wave abnormalities
[2023-07-21] MEDS ORDERED: PHARMACIST DISCHARGE MED REC CONSULT PRN (01:58)
[2023-07-21] MEDS ORDERED: CARBOHYDRATES FOR HYPOGLYCEMIA PO PRN (02:00)
[2023-07-21] MEDS ORDERED: GLUCAGON FOR INJ 1 MG VIAL SQ PRN (02:00)
[2023-07-21] MEDS ORDERED: GLUCOSE 10 TAB/TUBE PO PRN (02:00)
[2023-07-21] MEDS ORDERED: GLUCOSE 40% GEL 15 GM TUBE PO PRN (02:00)
[2023-07-21] MEDS ORDERED: hydrOXYzine HCl 10 MG TAB PO PRN (02:00)
[2023-07-21] MEDS ORDERED: DEXTROSE 50% 50 ML SYRINGE IV PRN (02:00)
[2023-07-21] MEDS ORDERED: PROMETHAZINE HCL 6.25 MG in SODIUM CHLORIDE 0.9% 50 ML IV PRN (02:00)
[2023-07-21] MEDS: hydrOXYzine HCl 10 MG TAB PO STA (02:47)
[2023-07-21] MEDS: NSS + 20MEQ KCL 20 MEQ/1,000 ML BAG IV STA (02:47)
[2023-07-21] MEDS ORDERED: ACETAMINOPHEN 325 MG TAB PO PRN (03:50)
[2023-07-21 04:02] LABS: Basophils # (auto) 0.02 K/uL (0.00-0.20); Basophils % (auto) 0.3 %; Eosinophils % (auto) 1.5 %; Hematocrit (blood only) 38.8 % (37.0-47.0); Hemoglobin 13.2 g/dl (12.0-16.0); Immature Granulocytes # (auto) 0.02 K/uL (0.01-0.20); Immature Granulocytes % (auto) 0.3 %; Lymphocytes # (auto) 2.27 K/uL (1.20-3.40); Lymphocytes % (auto) 34.6 %; Mean Corpuscular Hemoglobin 30.3 pg (25.0-34.0); Mean Platelet Volume 10.8 fL (9.4-12.4); Monocytes % (auto) 10.7 %; Neutrophils # (auto) 3.45 K/uL (1.40-6.50); Neutrophils % (auto) 52.6 %; Platelet Count 156 K/uL (130-400); RDW Coefficient of Variation 12.8 % (11.5-14.5); RDW Standard Deviation 41.5 fL (36.4-46.3); Red Blood Count 4.36 M/uL (4.20-5.40); White Blood Count 6.56 K/ul (4.8-10.8)
[2023-07-21 04:20] LABS: Calcium 8.7 mg/dl (8.6-10.3); Creatinine Clr Calc Pharmacy 51.4 ml/min; Est GFR (African American) 62.5 ml/min; Est GFR (Non-African American) 53.9 ml/min; Potassium 3.7 mmol/L (3.5-5.1)
[2023-07-21 05:17] LABS: Thyroid Stimulating Hormone 10.265 uIu/ml (0.300-4.500)
[2023-07-21 07:22] LABS: Estimated Average Glucose 123 mg/dl; Hemoglobin A1C 5.9 % (4.5-5.6)
[2023-07-21 08:11] LABS: T4 Free Thyroxine 0.95 ng/dl (0.61-1.60)
[2023-07-21] MEDS: ENOXAPARIN INJ 40 MG/0.4 ML SYR SQ SCH (08:20)
[2023-07-21] MEDS: DOCUSATE SODIUM 100 MG CAP PO SCH (08:20)
[2023-07-21] MEDS: PANTOprazole 40 MG TAB PO PRN (08:20)
[2023-07-21] MEDS: ASPIRIN 81 MG ECTAB PO SCH (08:20)
[2023-07-21] MEDS: CLOPIDOGREL BISULFATE 75 MG TAB PO SCH (08:21)
[2023-07-21] MEDS: METOPROLOL SUCC 25MG EXT REL TAB PO SCH (08:21)
[2023-07-21] MEDS: INSULIN ASPART PER UNIT CHARGE SC SCH (08:29)
--- NOTE | 2023-07-21 08:44 | Electrocardiogram Report ---
Test Reason : Blood Pressure : / mmHG Vent. Rate : 056 BPM Atrial Rate : 056 BPM P-R Int : 176 ms QRS Dur : 116 ms QT Int : 500 ms P-R-T Axes : 048 -58 008 degrees QTc Int : 482 ms Sinus bradycardia Left axis deviation Minimal voltage criteria for LVH, may be normal variant ( Demario product ) Poor R wave progression, consider anterior MD vs. lead placement vs. LVH Abnormal ECG No previous ECGs available Confirmed by Jeferson Anderson ([id number]) on 07/21/2023 8:44:33 AM Referred By: REFERRED SELF Confirmed By:Jeferson Anderson
--- NOTE | 2023-07-21 09:55 | Neurology Consultation ---
Date of Consultation July 21, 2023 Assessment & Plan (1) Brain TIA: Mary Wright presents with intermittent R facial droop and R hand numbness concerning for TIA in the setting of untreated afib. Her [id number] is a 6 - anticoagulation is necessary for stroke prevention. I discussed this with the patient who is in agreement for eliquis 5mg BID. Can stop aspirin and plavix which are inadequate in this context. 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 -- Start Eliquis 5mg BID for afib, TIA -- Stop aspirin and plavix -- No further neurologic workup, can follow-up with neurology in 4-6 weeks Telehealth Consultation Telehealth Information Telehealth Information: I performed this visit using a real-time telehealth connection between my location and the patients location ([facility]). After connecting through interactive tele-video, patient was identified by name and date of and/or wristband check.Patient (or authorized healthcare patient portal representative) was informed that this was a telemedicine visit and it was being conducted confidentially over secure lines. My office door was closed and no one else was present in the room with me.Patient (or authorized healthcare patient portal representative) provided consent to proceed with the visit, expressed an understanding of privacy and security of the telemedicine visit, and gave permission to have a hospital patient portal representative in the room in order to assist with the visit and to conduct portions of the visit, as needed. I informed the patient (or authorized healthcare patient portal representative) that I reviewed their record and presented the opportunity for them to ask any questions regarding the visit today. The patient agreed to participate. History of Present Illness Reason for Consultation: TIA Requesting Physician: Dr. Rendon Attending Physician: Raymundo Rendon MD History of Present Illness Mary Wright is a 77 yo F presenting with intermittent R facial droop, R hand numbness and L sided headache. She just had a stroke workup at [place] and was discharged back on her aspirin after her MRI was negative. She came back to [facility] same day as discharge with recurrence of her symptoms. This morning her hand symptoms are resolved but she still feels that the R corner of her mouth does not feel normal. She reports a 5-6 year history of afib but no one has ever discussed anticoagulation with her. She has not had any bleeding or bleeding complications in the past. No history of headaches. Allergies Allergy/AdvReac Type Severity Reaction Status Date / Time No Known Allergies Allergy Verified 07/20/23 23:33 Home Medications Medication Instructions Recorded Confirmed Type ascorbic acid (vitamin C) 500 mg 500 mg PO DAILY 07/20/23 07/20/23 History tablet (Vitamin C) aspirin 81 mg chewable tablet 81 mg PO DAILY 07/20/23 07/20/23 History docusate sodium 100 mg capsule 100 mg PO DAILY 07/20/23 07/20/23 History glimepiride 1 mg tablet 1 mg PO DAILY 07/20/23 07/20/23 History hydrochlorothiazide 25 mg tablet 25 mg PO DAILY 07/20/23 07/20/23 History loratadine 10 mg tablet 10 mg PO HS 07/20/23 07/20/23 History losartan 50 mg tablet 50 mg PO DAILY 07/20/23 07/20/23 History metoprolol succinate 25 mg 25 mg PO DAILY 07/20/23 07/20/23 History tablet,extended release 24 hr omeprazole 20 mg tablet,delayed 20 mg PO DAILY PRN 07/20/23 07/20/23 History release HEARTBURN/INDIGESTION potassium chloride 20 mEq 20 meq PO DAILY 07/20/23 07/20/23 History tablet,extended release(part/cryst) pravastatin 40 mg tablet 40 mg PO HS 07/20/23 07/20/23 History sitagliptin phosphate 100 mg 50 mg PO DAILY 07/20/23 07/20/23 History tablet (Januvia) Patient History Social History Smoking Status: Never smoker Hx Alcohol Use: No Hx Substance Use: No Preferred Language: Lithuanian Communication Ability: Effective 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 Oriented to person, place, and time. Fluent. Comprehension intact. Affect appropriate. Cranial Nerves: II: pupils 3/3 to 2/2, subramanian grossly intact. III/IV/: Versions intact without nystagmus, no gaze preference. V: Facial sensation symmetric to light touch VII: Facial expression symmetric VIII: Hearing intact to voice IX/X: Palate elevates symmetrically XI: Shoulder shrug symmetric XII: Tongue midline Motor: Strength was symmetric and antigravity throughout. Pronator drift was absent. There were no abnormal movements. Reflexes: Unable to assess over telemedicine Results & Data Vital Signs (Past 12 Hours) Vital Signs Temp Pulse Pulse Resp BP BP BP 07/21/23 07:30 36.6 C 60 20 121/71 07/21/23 04:08 54 L 07/21/23 03:30 37 C 54 L 18 139/71 07/21/23 03:00 07/21/23 02:25 60 07/21/23 02:00 64 18 152/75 H 07/21/23 00:00 63 18 133/77 07/20/23 23:37 07/20/23 23:00 56 L 19 114/64 07/20/23 22:40 57 L 20 133/82 07/20/23 22:33 07/20/23 22:30 56 L 20 152/95 H 07/20/23 22:25 57 L 07/20/23 22:25 36.6 C 59 L 18 152/95 H Pulse Ox O2 Del Method 07/21/23 07:30 98 Room Air 07/21/23 04:08 07/21/23 03:30 93 Room Air 07/21/23 03:00 Room Air 07/21/23 02:25 07/21/23 02:00 96 Room Air 07/21/23 00:00 97 Room Air 07/20/23 23:37 Room Air 07/20/23 23:00 95 07/20/23 22:40 96 07/20/23 22:33 Room Air 07/20/23 22:30 98 Room Air 07/20/23 22:25 07/20/23 22:25 94 Room Air Laboratory Results Abnormal lab results 07/20/23 07/21/23 07/21/23 Range/Units 22:41 03:30 07:19 [place] # (Auto) 0.72 H 0.70 H (0.11-0.59) K/uL Glucose 123 H 140 H (70-99(Fasting)) mg/dl POC Glucose 163 H (70-99) mg/dl Hemoglobin A1c 5.9 H (4.5-5.6) % TSH 10.265 H (0.300-4.500) uIu/ml Diagnostic Findings Head CT 07/20/23 23:04 CR Exam(s): CT HEAD Without Contrast EXAM: CT Head Without Intravenous Contrast CLINICAL HISTORY: Reason for exam: TIA. TECHNIQUE: Axial computed tomography images of the head/brain without intravenous contrast. Automated exposure control was utilized for the study. A dose lowering technique was utilized adhering to the principles of ALARA. COMPARISON: None. FINDINGS: Brain: No mass effect or acute infarct. No acute hemorrhage. Mild atrophy and chronic white matter disease. Ventricles: No hydrocephalus or midline shift. Bones/joints: No acute bony lesion. Soft tissues: No scalp hematoma. Visualized Sinuses: Clear. Mastoid air cells: No mastoid effusion. IMPRESSION: 1. Mild age-related findings. 2. No acute infarct, bleed, or acute intracranial abnormality. Communications: Call Doctor Stroke Electronically signed by: Sheela Rouse M.D. 07/20/23 23:48 PM Head CTA 07/20/23 23:24 CR Exam(s): CTA HEAD With Contrast IV Amt: 118 cc opti 320 EXAM: CT Angiography Head With Intravenous Contrast CLINICAL HISTORY: Reason for exam: TIA. TECHNIQUE: Axial computed tomographic angiography images of the head with intravenous contrast. CTDI is 30 mGy and DLP is 472.91 mGy-cm. Automated exposure control was utilized for the study. A dose lowering technique was utilized adhering to the principles of ALARA. MIP reconstructed images were created and reviewed. Mild venous contamination. CONTRAST: IV contrast is given. COMPARISON: None. FINDINGS: Right internal carotid artery: Patent. Right anterior cerebral artery: Patent. Aplastic or hypoplastic A1 segment Right middle cerebral artery: Patent. Right posterior cerebral artery: Patent. Right vertebral artery: Patent. Left internal carotid artery: Patent. Left anterior cerebral artery: Patent. Left middle cerebral artery: Patent. Left posterior cerebral artery: Patent. Left vertebral artery: Patent. Basilar artery: Patent. Other: Mild atherosclerosis bilateral cavernous ICA, without significant stenosis. Patent dural venous sinuses. IMPRESSION: 1. No aneurysm or large vessel occlusion. Communications: Call Doctor Stroke Electronically signed by: Sheela Rouse M.D. 07/21/23 00:02 AM Neck CTA 07/20/23 23:24 CR Exam(s): CTA NECK With Contrast IV Amt: 118 cc opti 320 EXAM: CT Angiography Neck With Intravenous Contrast CLINICAL HISTORY: Reason for exam: TIA. TECHNIQUE: Routine carotid CT angiography protocol was performed with intravenous contrast. NASCET criteria using the distal ICAs for comparison were used for evaluation of stenoses. CTDI is 30 mGy and DLP is 472.91 mGy-cm. Automated exposure control was utilized for the study. A dose lowering technique was utilized adhering to the principles of ALARA. MIP reconstructed images were created and reviewed. CONTRAST: IV contrast is given. COMPARISON: None. FINDINGS: Right common carotid artery: Patent. Right internal carotid artery: Patent. Right vertebral artery: Patent. Left common carotid artery: Patent. Left internal carotid artery: Patent. Left vertebral artery: Patent. Codominant. Other: No significant carotid atherosclerosis or stenosis. 4 mm right upper lobe pulmonary nodule, partially seen on the first image. IMPRESSION: 1. No dissection, occlusion, or significant stenosis. CAROTID STENOSIS REFERENCE USING NASCET CRITERIA: % ICA stenosis = (1 - narrowest ICA diameter/diameter of distal cervical ICA) x 100. Mild - <50% stenosis. Moderate - 50-69% stenosis. Severe - 70-94% stenosis. Near occlusion - 95-99% stenosis. Occluded - 100% stenosis. Communications: Call Doctor Stroke Electronically signed by: Sheela Rouse M.D. 07/21/23 00:02 AM
--- NOTE | 2023-07-21 10:36 | Pharmacy Report ---
- Date of Service July 21, 2023 - Pharmacy CVA/TIA Medication Review Medications to Prevent Stroke handout has been added to the patients discharge packet. Antiplatelet(s) * Antiplatelet therapy discontinued per neurology recommendation in favor of anticoagulation Cholesterol * Pravastatin 40 mg * High intensity statin deferred DVT Prophylaxis * On therapeutic DOAC Therapeutic Anticoagulation * Hx Afib/Aflutter noted, and patient is currently receiving eliquis Type 2 diabetes * Patient has T2DM, a diabetes medication with proven CVD benefit may be considered/deferred to their outpatient provider due to familiarity with risks/benefits of such therapies. "Medications to prevent stroke" handout has already been added to the patient's discharge packet, which instructs the patient to follow up with their outpatient provider to evaluate which diabetes medication with proven CVD benefit is best for them
--- NOTE | 2023-07-21 12:35 | Discharge Summary ---
Date of Service July 21, 2023 Admission HPI Per Admitting Provider History obtained from patient, family, and records. Medical history significant for paroxysmal atrial fibrillation, hypertension, hyperlipidemia, DM 2 on oral medications, NAFLFD, right breast cancer status post surgery/radiation. Patient noted by granddaughter to have droopy right side of the face 2 days ago. Right arm and right leg later noted to be weak. Patient not sure if she really had right-sided weakness. Patient brought to [facility] ER by family. Initially given Plavix for stroke, possible aspirin failure as per family. Confined overnight. No stroke on MRI as per family. Plavix discontinued as per family. Minimal right lip droop as per daughter although right-sided arm and leg weakness much improved. Patient discharged home because patient wanted to go home although patient still not feeling well as per admission. At home yesterday, patient noted transient right face and right upper arm numbness. Right lip felt funny as per patient. Left-sided headache symptoms as per patient. Patient currently comfortable at the ER. Medical History as above Surgical History : Cholecystectomy, hysterectomy, sinus surgery, breast surgery Family History : Breast cancer, heart disease, leukemia Personal/Social history : Non-smoker, no EtOH intake, homemaker in her younger years Admission Exam Per Admitting Provider GENERAL: Comfortable, pleasant, slightly anxious, no respiratory distress SKIN: Normal color, warm HEENT: Kieler palpebral conjunctivae, no ptosis, right nasolabial fold flattening, moist buccal mucosa NECK : Supple, no tenderness CHEST : CTA, no tenderness HEART : Bradycardic, no obvious murmurs ABDOMEN: no distention, nontender EXTREMITIES : No LE swelling/tenderness, no other conspicuous deformities noted NEUROLOGIC : Coherent, right lip symmetry, MMTS BUE/BLE 5/5 Principal Diagnosis Brain TIA Discharge Exam GENERAL: Comfortable, pleasant, on RA, no respiratory distress SKIN: Normal color, warm HEENT: Kieler palpebral conjunctivae, no ptosis, no facial droop, moist buccal mucosa NECK : Supple, no tenderness CHEST : CTA, no tenderness HEART : Bradycardic, no obvious murmurs ABDOMEN: no distention, nontender EXTREMITIES : No LE swelling/tenderness, no other conspicuous deformities noted NEUROLOGIC : Coherent, right lip symmetry, MMTS BUE/BLE 5/5 Discharge Data Allergies Allergy/AdvReac Type Severity Reaction Status Date / Time No Known Allergies Allergy Verified 07/20/23 23:33 Consultations 07/21/23 01:13 ED Decision to Admit Stat 07/21/23 06:51 Consult Neurology Routine Ordered Studies 07/20/23 23:04 CT head/brain wo con Stat 07/20/23 23:24 CTA head w con [CT angio head w con] Stat CTA neck with con [CT angio neck with con] Stat 07/22/23 06:00 CT head/brain wo con Routine Hospital Course (1) Brain TIA: Per prior attending with addendum Right facial droop persistent from admission at [facility] 2 days ago. Right face/RUE numbness currently resolved. Possible aspirin failure paroxysmal atrial fibrillation, patient NSR hypertension, stable hyperlipidemia on statin Rx DM 2 on oral medications, unknown baseline control R breast cancer status post surgery/radiation, in remission Subclinical hypothyroidism OBS Medical telemetry Neurochecks Add Plavix to aspirin for possible aspirin failure Continue statin Rx Unfortunately patient adamantly refusing repeat brain MRI given stroke concerns. Repeat CT head [address] done at the ER. Neurology consult Re: CVA ISS BG goal 1 10-1 40, carb count coverage, check hemoglobin A1c Update lipid profile Initiate levothyroxine and recheck TSH outpatient next month DVT prophylaxis. Lovenox subcu Full code Patient daughter requesting updates providers. Ms. Jane Sexton, contact #[phone]. Addendum 07/21/2023: Patient was seen and examined at bedside as a follow-up of intermittent right facial droop and right hand numbness. Patient reports resolution of the symptoms/no new neurological symptoms. Patient also noted to be hypothyroid, levothyroxine has been started. Patient to repeat thyroid function test in about 6 weeks time. Neurology recommendations reviewed, aspirin and Plavix discontinued, patient started on Eliquis, $47 a monthpatient agreeable for the cost per rn. Patient is being discharged with following instruction at the point of discharge: Follow-up with your primary care physician within a week time and likely you will need labs CBC/CMP/magnesium/phosphorus. You were evaluated by neurology, you are started on Eliquis 5 mg twice a day, you can discontinue your prior to arrival aspirin . Follow-up with neurology in 4 to 6 weeks time. You were noted to have hypothyroidism, you are being started on levothyroxinea small dose. You will need repeat thyroid function test in about 6 weeks time and ongoing management of your hypothyroidism. Coordinate with your PCP office to set up the test. Take your medications as prescribed. Please make sure that you are able to get your medications today by calling your pharmacy before you leave the hospital so that your treatment continuity is not broken. Text document was generated using [employer] voice recognition software. It may contain grammatical or spelling errors. Kindly contact undersigned for clarification of any documentation item in question. Home Health Attestation I certify that this patient is under my care and that I, or a physicians assistant head cashier working with me, had a face to-face encounter that meets the home health [id number] encounter requirements with this patient. The encounter with the patient was in whole, or in part, for the following medical condition, which is the primary reason for home health care (list medical condition): I certify that, based on my findings, the following services are medically necessary home health services: My clinical findings support the need for the above services because: Further, I certify that my clinical findings support that this patient is homebound (i.e. absences from home require considerable and taxing effort and are for medical reasons or christianity services or infrequently or of short duration when for other reasons) because: Certification for Home Health Services: Based on the above findings, I certify that this patient is confined to the home and needs intermittent jail care, physical therapy and/or speech therapy or continues to need occupational therapy. The patient is under my care, and I have initiated the establishment of the plan of care. This patient will be followed by a physician who will periodically review the plan of care. Total Time Total Time Spent Total Time Spent (In Minutes): 45 Discharge Plan Discharge Items Patient Disposition: Home - Self-Care Reason For Visit: TIA Discharge Diagnosis: Brain TIA Activity: Resume your previous activity Non-emergency contact: Primary Care Provider Call non-emergency contact if: you have any medication questions and your symptoms worsen Follow-up/Referrals: Yanira Mo CRNP [Primary Care Provider] - Diet: Carb Consistent or DM2 and Heart Healthy Addtl Attending Provider Instructions: Follow-up with your primary care physician within a week time and likely you shoshana l need labs CBC/CMP/magnesium/phosphorus. You were evaluated by neurology, you are started on Eliquis 5 mg twice a day, you can discontinue your prior to arrival aspirin . Follow-up with neurology in 4 to 6 weeks time. You were noted to have hypothyroidism, you are being started on levothyroxinea small dose. You will need repeat thyroid function test in about 6 weeks time and ongoing management of your hypothyroidism. Coordinate with your PCP office to set up the test. Take your medications as prescribed. Please make sure that you are able to get your medications today by calling your pharmacy before you leave the hospital so that your treatment continuity is not broken. Pending Studies at Discharge: No Stand-Alone Forms: [facility] [employer], Smoking Cessation, Medications to Prevent Stroke Medications and DC Order Prescriptions: New Eliquis 5 mg Tablet 5 mg PO BID 30 Days Qty: 60 0RF levothyroxine [Synthroid] 25 mcg Tablet 25 mcg PO DAILYBB Qty: 30 0RF Continued losartan 50 mg tablet 50 mg PO DAILY pravastatin 40 mg tablet 40 mg PO HS glimepiride 1 mg tablet 1 mg PO DAILY potassium chloride 20 mEq tablet,ER particles/crystals 20 meq PO DAILY ascorbic acid (vitamin C) [Vitamin C] 500 mg Tablet 500 mg PO DAILY docusate sodium 100 mg Capsule 100 mg PO DAILY hydrochlorothiazide 25 mg tablet 25 mg PO DAILY metoprolol succinate 25 mg tablet extended release 24 hr 25 mg PO DAILY loratadine 10 mg tablet 10 mg PO HS Januvia 100 mg tablet 50 mg PO DAILY omeprazole 20 mg Tablet,Delayed Release (Dr/Ec) 20 mg PO DAILY PRN (Reason: HEARTBURN/INDIGESTION) Discontinued aspirin 81 mg Tablet,Chewable 81 mg PO DAILY Discharge Orders: Discharge Order (Routine); Ordered 07/21/23 Ordered By: Herrera Hinojosa Admission Data Admit Date/Time: 07/21/23 01:57 Attending Provider: Herrera Hinojosa Admit Provider: Taqueria Coreas Primary Care Provider: Yanira Mo Other Providers: Taqueria Coreas; Erma Bran; eJlani Powers; Erma Gannon; Sanju Aleman; Adria Fofana; Marty Marsh; Jeferson Amador; Paige Hurt; Hira Juarez; Raj Alanis; Rosalind Vazquez; Rojas Mayes; Josefina Winston; Maria Teresa Crow; Jeferson Benz
[2023-07-21] MEDS: STROKE PATIENT DISCHARGE STA (13:37)
[2023-07-21] MEDS ORDERED: PRAVASTATIN SOD 40 MG TAB PO SCH (21:00)
[2023-07-21] MEDS ORDERED: LORATADINE 10 MG TAB PO SCH (21:00)
[2023-07-21] MEDS ORDERED: APIXABAN 5 MG TABLET PO SCH (21:00)
[2023-07-22] MEDS ORDERED: LEVOTHYROXINE SODIUM 25 MCG TABLET PO SCH (06:30)
--- NOTE | 2023-07-24 10:04 | Pharmacy Report ---
Pharmacist Stroke Counseling - Date of Service July 24, 2023 - Scope: Pharmacy has been consulted to provide medication discharge counseling for this patient admitted with TIA as per the Pharmacist Discharge Counseling for Stroke Patients Protocol. - Medications on Discharge: Home Medications Medication Instructions Recorded Confirmed ascorbic acid (vitamin C) 500 mg 500 mg PO DAILY 07/20/23 07/20/23 tablet (Vitamin C) docusate sodium 100 mg capsule 100 mg PO DAILY 07/20/23 07/20/23 glimepiride 1 mg tablet 1 mg PO DAILY 07/20/23 07/20/23 hydrochlorothiazide 25 mg tablet 25 mg PO DAILY 07/20/23 07/20/23 loratadine 10 mg tablet 10 mg PO HS 07/20/23 07/20/23 losartan 50 mg tablet 50 mg PO DAILY 07/20/23 07/20/23 metoprolol succinate 25 mg 25 mg PO DAILY 07/20/23 07/20/23 tablet,extended release 24 hr omeprazole 20 mg tablet,delayed 20 mg PO DAILY PRN 07/20/23 07/20/23 release HEARTBURN/INDIGESTION potassium chloride 20 mEq 20 meq PO DAILY 07/20/23 07/20/23 tablet,extended release(part/cryst) pravastatin 40 mg tablet 40 mg PO HS 07/20/23 07/20/23 sitagliptin phosphate 100 mg 50 mg PO DAILY 07/20/23 07/20/23 tablet (Januvia) New Rx's Medication Instructions Recorded apixaban 5 mg tablet (Eliquis) 5 mg PO BID 30 days #60 tabs 07/21/23 levothyroxine 25 mcg tablet 25 mcg PO DAILYBB #30 tabs 07/21/23 (Synthroid) - Outcome: The patient and/or patient self pay representative(s) have demonstrated understanding of the medications. Additional comments: Patient states she was able to get new medications, she has no questions at this time. Thank you for allowing pharmacy to be involved in the care of this patient. Please call [phone] with any additional questions
== END 2023-07-21 13:38 | disposition home or self-care (01) ==
LOC: ED 22:20 → 2S 22:20 → SUATTDRO 07-21 01:57 → 2S 07-21 03:00

== ENCOUNTER 2024-04-30 09:40 | Inpatient (IN) ==
--- NOTE | 2024-04-30 09:56 | Emergency Department Note ---
Impression & Plan Acute respiratory failure with hypoxia, Acute bronchitis, Influenza A, Generalized weakness ED Provider Note NAME: KEREN COLLADO AGE: 78 SEX: F : 1945 ARRIVES VIA: Ambulance INFORMANT: Patient, Yasir ED PROVIDER(S): Addy Sanon MD CHIEF COMPLAINT: Fevers, chills, cough MEDICAL DECISION MAKING: Patient presents with the above. IV was established and blood work was obtained. Did discuss with nursing would defer cultures at this time but depending on the patient's white count as well as BioFire may determine whether or not additional blood work cultures or antibiotics would be obtained. Patient with a normal white count and H&H. Thrombocytopenic at 111. Patient's kidney function with a creat of 1.27. BioFire positive for flu A. Patient was ordered Tamiflu. IV fluids ordered along with Xopenex and IV Tylenol. The patient had complained of wanting something for cough so did receive Tessalon Perle. Chest x-ray without acute process. Commented foreign body overlying cardiac silhouette. Patient reportedly does have a history of a loop recorder. Likely what is seen there on x-ray. Given the patient's hypoxia febrile flu. I did speak the on-call hospitalist service and the patient was admitted to medicine service. Critical Care: I have personally spent 35 minutes of critical care time in direct management of this patient. This includes bedside care, interpretation of diagnostic studies, and testing, discussion with consultants, patient, and family members, and other require inpatient management activities. This 35 minutes is in excess of all separately billable procedures. Discussion w/ other healthcare providers: Dr. Snell patient medicine service Prior /Outside records reviewed: I reviewed part of the discharge summary from Dr. Hinojosa. Known history of A-fib hypertension hyperlipidemia type 2 diabetes and AFL FT and right breast cancer s/p surgery and radiation therapy. Patient was admitted for brain TIA. Patient reportedly had right facial droop that was present at the time of admission at [facility] 2 days prior to the admission. Differential diagnosis: Viral syndrome, otitis, pharyngitis, pneumonia, influenza, meningitis, urinary tract infection, sepsis, bacteremia, as well as other pathologies. Diagnostics, as interpreted by me: ECG: Sinus tachycardia, rate of 105, normal intervals, left axis deviation no ST elevations. Cardiac monitoring: An order was placed for continuous cardiac monitoring. The monitor shows a rate of 98 with sinus rhythm. Patient was placed on pulse oximetry Medical decision rules: None Imaging studies: I informally interpreted the patient's chest x-ray does not show obvious pneumonia or pneumothorax with formal report to follow. HPI: Patient presents due to concern for cough and fever. The patient has had cough and it is dry. No reported smoking history. Patient has been using grandsons nebulizer albuterol at home 2 times which seemed to improve her symptoms. The patient has had some notable wheezing at home. Patient reportedly did recently go to [facility] due to concern for a CO detector going off at home. They did determine that there was a clog in the flu for the furnace. CO was reportedly undetectable at the time of presentation. Patient with slight decreased p.o. intake. No recent travel but patient does have a family member that is also ill. No abdominal pain chest pain or shortness of breath. Patient has felt feverish at home and did take some ibuprofen yesterday no medications today. PAST MEDICAL HISTORY: See Below PAST SURGICAL HISTORY: See Below SOCIAL HISTORY: See Below HOME MEDICATIONS: See Below ALLERGIES: See Below VITALS: See Below PHYSICAL EXAMINATION: GENERAL: NAD, non-toxic. EYE EXAM: Normal conjunctiva. PERRL, no anisocoria and EOM's grossly intact w/o pain. OROPHARYNX: Moist mucus membranes, grossly normal dentition. NECK: Trachea midline, no stridor. Supple, no nuchal rigidity, no adenopathy, non-tender. No signs of meningismus. FROM of the neck with good chin to chest and neck extension. LUNGS: Clear to auscultation. Normal chest wall mechanics. HEART: NSR, no MRG. ABDOMEN: Abdomen soft, non-tender, no masses, no rebound or guarding. BACK: No CVA TTP. SKIN: No rashes and no bruising. UPPER EXTREMITIES: Upper extremities are grossly normal. LOWER EXTREMITIES: Grossly normal, no edema. NEURO EXAM: A&O x3, cranial nerves II-XII grossly intact, normal speech, moves all 4 extremities. Past Med/Surg History Problem List (Updated 08/21/23 @ 00:07 by Background Daemon) Falls Generalized weakness (Acute) Influenza A (Acute) Acute bronchitis (Acute) Acute respiratory failure with hypoxia (Acute) Brain TIA (Acute) Glaucoma (Chronic) GERD (gastroesophageal reflux disease) (Chronic) Hypertension (Chronic) Fatty liver disease, nonalcoholic (Chronic) Diabetes mellitus (Chronic) Status post right breast lumpectomy (Acute 10/14/13) Social History Smoking Status: Never smoker Second Hand Exposure: No; Do You Dip or Chew Tobacco: No; Hx Alcohol Use: No Hx Substance Use: No Preferred Language: Spanish Communication Ability: Effective Stacker Required: No Beliefs That Will Affect Care: None Current Living Situation: Family Current Living Situation Comment: with sons Feels Safe at Home: Yes Safety Concerns: Feels Safe At This Time Assistive Devices: Denture - Upper, Glasses and Hearing Aid - Bilateral Allergies Allergies Allergy/AdvReac Type Severity Reaction Status Date / Time No Known Allergies Allergy Verified 04/30/24 11:38 Home Meds Home Medications Medication Instructions Recorded Confirmed ascorbic acid (vitamin C) 500 mg 500 mg PO DAILY 07/20/23 04/30/24 tablet (Vitamin C) docusate sodium 100 mg capsule 100 mg PO DAILY 07/20/23 04/30/24 glimepiride 1 mg tablet 1 mg PO DAILY 07/20/23 04/30/24 hydrochlorothiazide 25 mg tablet 25 mg PO DAILY 07/20/23 04/30/24 losartan 50 mg tablet 50 mg PO DAILY 07/20/23 04/30/24 metoprolol succinate 25 mg 25 mg PO DAILY 07/20/23 04/30/24 tablet,extended release 24 hr omeprazole 20 mg tablet,delayed 20 mg PO DAILY PRN 07/20/23 04/30/24 release HEARTBURN/INDIGESTION potassium chloride 20 mEq 20 meq PO DAILY 07/20/23 04/30/24 tablet,extended release(part/cryst) pravastatin 40 mg tablet 40 mg PO HS 07/20/23 04/30/24 sitagliptin phosphate 100 mg 50 mg PO DAILY 07/20/23 04/30/24 tablet (Januvia) aspirin 81 mg tablet,delayed 81 mg PO DAILY 04/30/24 04/30/24 release hydroxyzine HCl 25 mg tablet 25 mg PO HS 04/30/24 04/30/24 Previous Rx's Medication Instructions Recorded levothyroxine 25 mcg tablet 25 mcg PO DAILYBB #30 tabs 07/21/23 (Synthroid) Results & Data (ED) Vital Signs Vital Signs - 24 hr 04/30/24 09:45 04/30/24 09:52 04/30/24 10:00 Temperature 38.1 C H Temperature Source Oral Pulse Rate 103 H 99 H Pulse Rate [Apical] Respiratory Rate 24 24 Respiratory Effort / Characteristics Non-Labored Respiratory Depth Normal Respiratory Pattern Regular Blood Pressure 125/75 106/72 Blood Pressure Mean 91 89 Pulse Oximetry 89 L 89 L 91 Oxygen Delivery Method Room Air Nasal Cannula Nasal Cannula Oxygen Flow Rate 2 Sepsis Recent Fever Within 48 Hours Yes Sepsis New/Unexplained Change in Mental Status No Sepsis Action Taken by Nursing Physician Notified Oxygen Flow Rate - Titration 2 Pulse Oximetry Post Tiitration 92 04/30/24 10:16 04/30/24 10:50 04/30/24 11:00 Temperature Temperature Source Pulse Rate 98 H 97 H Pulse Rate [Apical] 88 Respiratory Rate 18 22 Respiratory Effort / Characteristics Non-Labored Spontaneous Respiratory Depth Respiratory Pattern Blood Pressure 122/83 Blood Pressure Mean 106 Pulse Oximetry 93 94 Oxygen Delivery Method Nasal Cannula Nasal Cannula Oxygen Flow Rate 2 2 Sepsis Recent Fever Within 48 Hours Sepsis New/Unexplained Change in Mental Status Sepsis Action Taken by Nursing Oxygen Flow Rate - Titration Pulse Oximetry Post Tiitration Home Medications Current Medication List: was personally reviewed by me Laboratory Data Attestation: I reviewed the patient's lab results. 04/30/24 09:46 04/30/24 09:46 Lab Results 04/30/24 04/30/24 04/30/24 Range/Units 09:45 09:46 10:19 WBC 8.92 (4.8-10.8) K/ul RBC 4.44 (4.20-5.40) M/uL Hgb 13.3 (12.0-16.0) g/dl Hct 38.5 (37.0-47.0) % MCV 86.7 (80.0-100.0) fL MCH 30.0 (25.0-34.0) pg MCHC 34.5 (32.0-36.0) g/dL RDW Std Deviation 40.9 (36.4-46.3) fL RDW Coeff of Martha 12.9 (11.5-14.5) % Plt Count 111 L (130-400) K/uL MPV 11.7 (9.4-12.4) fL Immature Gran % (Auto) 1.0 % Neut % (Auto) 77.5 % Lymph % (Auto) 9.1 % [place] % (Auto) 12.2 % Eos % (Auto) 0.1 % Baso % (Auto) 0.1 % Neut # (Auto) 6.91 H (1.40-6.50) K/uL Lymph # (Auto) 0.81 L (1.20-3.40) K/uL [place] # (Auto) 1.09 H (0.11-0.59) K/uL Eos # (Auto) 0.01 (0.00-0.50) K/uL Baso # (Auto) 0.01 (0.00-0.20) K/uL Immature Gran # (Auto) 0.09 (0.01-0.20) K/uL Sodium 135 L (136-145) mmol/L Potassium 3.5 (3.5-5.1) mmol/L Chloride 99 (98-107) mmol/L Carbon Dioxide 27 (21-32) mmol/L Anion Gap 9 (3-11) BUN 24 H (6-23) mg/dl Creatinine 1.27 H (0.6-1.2) mg/dl Est Cr Clr Drug Dosing 38.7 ml/min eGFR 43.02 BUN/Creatinine Ratio 18.9 (10-20) Glucose 170 H (70-99(Fasting)) mg/dl Lactate 1.3 (0.4-2.0) mmol/L Calcium 8.6 (8.6-10.3) mg/dl Total Bilirubin 0.7 (0.2-1.0) mg/dl AST 38 (13-39) U/L ALT 19 (7-52) U/L Alkaline Phosphatase 47 (34-104) U/L Total Protein 7.2 (6.0-8.3) gm/dl Albumin 3.8 (3.4-5.0) gm/dl Globulin 3.4 (2.5-4.0) gm/dl Albumin/Globulin Ratio 1.1 (0.9-2) Procalcitonin 0.35 (0-0.5) ng/ml Adenovirus (PCR) Not Detected (NotDetected) B. pertussis DNA (PCR) Not Detected (NotDetected) B.parapertussis DNA PCR Not Detected (NotDetected) C. pneumoniae DNA (PCR) Not Detected (NotDetected) Coronavirus OC43 (PCR) Not Detected (NotDetected) Coronavirus HKU1 (PCR) Not Detected (NotDetected) Coronavirus 229E (PCR) Not Detected (NotDetected) SARS-CoV-2 (PCR) Not Detected (NotDetected) Coronavirus NL63 (PCR) Not Detected (NotDetected) Human Metapneumovir PCR Not Detected (NotDetected) Influenza A (H3) PCR DETECTED A (NotDetected) Influenza Type B (PCR) Not Detected (NotDetected) M. pneumoniae (PCR) Not Detected (NotDetected) Parainfluenza 1 (PCR) Not Detected (NotDetected) Parainfluenza 2 (PCR) Not Detected (NotDetected) Parainfluenza 3 (PCR) Not Detected (NotDetected) Parainfluenza 4 (PCR) Not Detected (NotDetected) RSV (PCR) Not Detected (NotDetected) Entero/Rhino (PCR) Not Detected (NotDetected) Administered Medications Doxycycline Hyclate (Doxycycline Hyclate 100 Mg Cap) 100 mg PO BID [facility] Stop: 05/05/24 14:59 Last Admin: 04/30/24 16:36 Dose: 100 mg Documented By: PELON Guaifenesin (Guaifenesin 600 Mg Tabcr) 600 mg PO Q12 [facility] Stop: 05/30/24 14:59 Last Admin: 04/30/24 16:36 Dose: 600 mg Documented By: PELON Ceftriaxone Sodium (Rocephin) 2,000 mg in 50 mls @ 100 mls/hr IV Q24H [facility] Stop: 05/05/24 15:29 Last Infusion: 04/30/24 16:34 Dose: Infused Documented By: Admin: 04/30/24 15:56 Dose: 100 mls/hr Documented By: PELON Sodium Chloride (Nss) 1,000 mls @ 75 mls/hr IV .[id number] [facility] Stop: 05/01/24 13:59 Last Admin: 04/30/24 16:39 Dose: 75 mls/hr Documented By: PELON Discontinued Medications Benzonatate (Benzonatate 100 Mg Capsule) 100 mg PO NOW ONE Stop: 04/30/24 12:45 Last Admin: 04/30/24 13:09 Dose: 100 mg Documented By: ESTELLE Acetaminophen (Ofirmev) 1,000 mg in 100 mls @ 400 mls/hr IV NOW STA Stop: 04/30/24 10:41 Last Infusion: 04/30/24 10:59 Dose: Infused Documented By: Admin: 04/30/24 10:42 Dose: 400 mls/hr Documented By: ESTELLE Sodium Chloride (Nss) 1,000 mls @ 999 mls/hr IV .[id number] ONE Stop: 04/30/24 11:47 Last Infusion: 04/30/24 12:19 Dose: Infused Documented By: Admin: 04/30/24 10:58 Dose: 999 mls/hr Documented By: ESTELLE Levalbuterol HCl (Levalbuterol 1.25 Mg/3 Ml Neb) 1.25 mg NEB NOW STA Stop: 04/30/24 10:28 Last Admin: 04/30/24 10:48 Dose: 1.25 mg Documented By: [id number] Oseltamivir Phosphate (Oseltamivir Phosphate 75 Mg Cap) 75 mg PO NOW STA Stop: 04/30/24 11:39 Last Admin: 04/30/24 12:16 Dose: 75 mg Documented By: ESTELLE Imaging Data Radiologist's Impression: Chest X-Ray 04/30/24 10:07 XR chest 1V portable CLINICAL HISTORY: Fever, cough COMPARISON STUDY: None FINDINGS: Single view portable chest demonstrates cardiomegaly with left ventricular prominence and mild pulmonary vascular congestion. There is no evidence of a focal airspace opacity, pleural effusion, or pulmonary edema. There is no pneumothorax. There is a fusiform opacity overlying the cardiac silhouette of uncertain position and significance on this single view. IMPRESSION: No acute process. Foreign body overlying the cardiac silhouette; uncertain position and significance. ACT 112: Negative or not required by law. Electronically signed by: Christine Garnica M.D. 04/30/2024 10:33 AM Discharge Plan Visit Data Chief Complaint: Weakness Stated Complaint: WEAKNESS, COUGH, FEVER, FLU SX ED Provider: Addy Sanon Discharge Problem: Acute respiratory failure with hypoxia, Acute bronchitis, Influenza A, Generalized weakness Patient Disposition: Admitted As Inpatient Discharge Instructions Interventions: ED Discharge Assessment Last Done: 04/30/24 15:00 Discharge Problem: Acute bronchitis Qualifiers: Bronchitis organism: other organism Qualified Code(s): J20.8 - Acute bronchitis due to other specified organisms
[2024-04-30 10:21] LABS: Basophils # (auto) 0.01 K/uL (0.00-0.20); Basophils % (auto) 0.1 %; Eosinophils # (auto) 0.01 K/uL (0.00-0.50); Eosinophils % (auto) 0.1 %; Hematocrit (blood only) 38.5 % (37.0-47.0); Hemoglobin 13.3 g/dl (12.0-16.0); Immature Granulocytes # (auto) 0.09 K/uL (0.01-0.20); Lymphocytes # (auto) 0.81 K/uL (1.20-3.40); Lymphocytes % (auto) 9.1 %; Mean Corpuscular Hgb Conc 34.5 g/dL (32.0-36.0); Mean Corpuscular Volume 86.7 fL (80.0-100.0); Mean Platelet Volume 11.7 fL (9.4-12.4); Monocytes # (auto) 1.09 K/uL (0.11-0.59); Monocytes % (auto) 12.2 %; Neutrophils # (auto) 6.91 K/uL (1.40-6.50); Neutrophils % (auto) 77.5 %; Platelet Count 111 K/uL (130-400); RDW Coefficient of Variation 12.9 % (11.5-14.5); RDW Standard Deviation 40.9 fL (36.4-46.3); Red Blood Count 4.44 M/uL (4.20-5.40); White Blood Count 8.92 K/ul (4.8-10.8)
[2024-04-30 10:34] LABS: Albumin Globulin Ratio 1.1 (0.9-2); Albumin Level 3.8 gm/dl (3.4-5.0); BUN Creatinine Ratio 18.9 (10-20); Bilirubin,Total 0.7 mg/dl (0.2-1.0); Calcium 8.6 mg/dl (8.6-10.3); Creatinine Clr Calc Pharmacy 38.7 ml/min; Globulin 3.4 gm/dl (2.5-4.0); Potassium 3.5 mmol/L (3.5-5.1); Total Protein 7.2 gm/dl (6.0-8.3)
--- NOTE | 2024-04-30 10:35 | XRay Report ---
XR chest 1V portable CLINICAL HISTORY: Fever, cough COMPARISON STUDY: None FINDINGS: Single view portable chest demonstrates cardiomegaly with left ventricular prominence and m ild pulmonary vascular congestion. There is no evidence of a focal airspace opacity, pleural effusion , or pulmonary edema. There is no pneumothorax. There is a fusiform opacity overlying the cardiac nishant houette of uncertain position and significance on this single view. IMPRESSION: No acute process. Foreign body overlying the cardiac silhouette; uncertain position and significance. ACT 112: Negative or not required by law. Electronically signed by: Christine Garnica M.D. 04/30/2024 10:33 AM
[2024-04-30] MEDS: ACETAMINOPHEN 1,000 MG/100 ML VIAL IV STA (10:42)
[2024-04-30] MEDS: LEVALBUTEROL 1.25 MG/3 ML NEB NEB STA (10:48)
[2024-04-30] MEDS: SODIUM CHLORIDE 0.9% 1,000 ML IV ONE (10:58)
[2024-04-30 11:16] LABS: Adenovirus PCR Not Detected (NotDetected); Bordetella parapertussis PCR Not Detected (NotDetected); Bordetella pertussis PCR Not Detected (NotDetected); Chlamydia pneumoniae PCR Not Detected (NotDetected); Coronavirus 229E PCR Not Detected (NotDetected); Coronavirus CoV-2 (COVID19)PCR Not Detected (NotDetected); Coronavirus HKU1 PCR Not Detected (NotDetected); Coronavirus NL63 PCR Not Detected (NotDetected); Coronavirus OC43PCR Not Detected (NotDetected); Human Metapneumovirus PCR Not Detected (NotDetected); Influenza A (H3) PCR DETECTED (NotDetected); Influenza B PCR Not Detected (NotDetected); Mycoplasma pneumoniae PCR Not Detected (NotDetected); Parainfluenza Virus 1 PCR Not Detected (NotDetected); Parainfluenza Virus 2 PCR Not Detected (NotDetected); Parainfluenza Virus 3 PCR Not Detected (NotDetected); Parainfluenza Virus 4 PCR Not Detected (NotDetected); Respiratory Syncytial VirusPCR Not Detected (NotDetected); Rhinovirus/Enterovirus PCR Not Detected (NotDetected)
[2024-04-30] MEDS: OSELTAMIVIR PHOSPHATE 75 MG CAP PO STA (12:16)
[2024-04-30] MEDS ORDERED: GLUCAGON FOR INJ 1 MG VIAL SQ PRN (13:04)
[2024-04-30] MEDS ORDERED: CARBOHYDRATES FOR HYPOGLYCEMIA PO PRN (13:04)
[2024-04-30] MEDS ORDERED: DEXTROSE 50% 50 ML SYRINGE IV PRN (13:04)
[2024-04-30] MEDS ORDERED: GLUCOSE 10 TAB/TUBE PO PRN (13:04)
[2024-04-30] MEDS ORDERED: GLUCOSE 40% GEL 15 GM TUBE PO PRN (13:04)
[2024-04-30] MEDS: BENZONATATE 100 MG CAPSULE PO ONE (13:09)
--- NOTE | 2024-04-30 14:24 | History & Physical Report ---
Date of Service April 30, 2024 Assessment & Plan (1) Acute respiratory failure with hypoxia: (2) Acute bronchitis: (3) Influenza A: (4) Generalized weakness: Plan: Patient is a 78-year-old female with history of paroxysmal A-fib, TIA, diabetes type 2, hypertension, dyslipidemia, right breast cancer status postsurgery and radiation therapy, subclinical hypothyroidism, presenting with cough, fever and weakness since Monday, 4 days ago. Acute hypoxic respite failure secondary to acute bronchitis, influenza A infection Possible sepsis Admitted with hypoxia, febrile, tachycardic BioFire positive for influenza A Chest x-ray: No pneumonia Lactic acid normal Will start empiric antibiotics given severity of illness and hypoxia Ceftriaxone plus doxycycline Tamiflu twice daily Nebs every 6 hours, incentive spirometry, flutter valve, Mucinex Sputum culture IV fluids due to poor oral intake Falls, Generalized weakness Secondary #1 Patient fell twice yesterday due to generalized weakness Fell on her buttocks, no head trauma Denies pain but will check bilateral hip and pelvic x-ray Monitor closely, PT OT eval Other chronic medical problems Paroxysmal A-fib-will verify with family if patient takes aspirin versus Eliquis TIA DM type II-insulin sliding scale Hypertension Dyslipidemia Breast cancer s/p radiation and surgery DVT prophylaxis Heparin subcu if not taking Eliquis Full code as per patient and family Disposition Will need PT and OT eval due to weakness plan of care discussed with patient And her daughters at the bedside in detail and at length all questions answered They are understanding, agreeable, comfortable with the plan of care (5) Falls: History of Present Illness Chief Complaint: Cough, fever, weakness x 4 days Primary Care Provider: ARCHANA Sheth Patient is a 78-year-old female with history of paroxysmal A-fib, TIA, diabetes type 2, hypertension, dyslipidemia, right breast cancer status postsurgery and radiation therapy, subclinical hypothyroidism, presenting with cough, fever and weakness since Monday, 4 days ago. History obtained from patient and also daughters at the bedside. Last Monday, patient started to develop productive cough, associated with fever, congestion, weakness. Symptoms persisted through the weekend. Yesterday, patient CO2 alarm went off, and patient was brought to [place] ER. CO2 level was minimal and patient was discharged to home. Fire department crew went to the patient's house, aired out the entire house and CO2 was then undetectable at the time the patient return to home. Patient also had 2 episodes of falls last evening due to weakness, legs giving out. Patient fell on her buttocks, no head trauma. Due to persistence of cough, weakness, patient was brought to the emergency room at [facility]. Upon arrival, blood pressure 125/75, 89% on room air, heart rate 103, temperature 38.1. BioFire positive for flu Chest x-ray no pneumonia Patient given Xopenex nebulizer treatment, Tamiflu, Tessalon Perle and IV fluids On exam, patient seen sitting up in bed, on 2 L of O2, comfortable, not in distress States breathing is improving, but still feels very weak No active chest pain, nausea, palpitations during my exam. Allergies Allergy/AdvReac Type Severity Reaction Status Date / Time No Known Allergies Allergy Verified 04/30/24 11:38 Home Medications Medication Instructions Recorded Confirmed Type ascorbic acid (vitamin C) 500 mg 500 mg PO DAILY 07/20/23 04/30/24 History tablet (Vitamin C) docusate sodium 100 mg capsule 100 mg PO DAILY 07/20/23 04/30/24 History glimepiride 1 mg tablet 1 mg PO DAILY 07/20/23 04/30/24 History hydrochlorothiazide 25 mg tablet 25 mg PO DAILY 07/20/23 04/30/24 History losartan 50 mg tablet 50 mg PO DAILY 07/20/23 04/30/24 History metoprolol succinate 25 mg 25 mg PO DAILY 07/20/23 04/30/24 History tablet,extended release 24 hr omeprazole 20 mg tablet,delayed 20 mg PO DAILY PRN 07/20/23 04/30/24 History release HEARTBURN/INDIGESTION potassium chloride 20 mEq 20 meq PO DAILY 07/20/23 04/30/24 History tablet,extended release(part/cryst) pravastatin 40 mg tablet 40 mg PO HS 07/20/23 04/30/24 History sitagliptin phosphate 100 mg 50 mg PO DAILY 07/20/23 04/30/24 History tablet (Januvia) levothyroxine 25 mcg tablet 25 mcg PO DAILYBB #30 tabs 07/21/23 04/30/24 Rx (Synthroid) aspirin 81 mg tablet,delayed 81 mg PO DAILY 04/30/24 04/30/24 History release hydroxyzine HCl 25 mg tablet 25 mg PO HS 04/30/24 04/30/24 History Past Med/Surg History Problem List (Updated 08/21/23 @ 00:07 by Background Peyton) Falls Generalized weakness Influenza A Acute bronchitis Acute respiratory failure with hypoxia Brain TIA (Acute) Glaucoma (Chronic) GERD (gastroesophageal reflux disease) (Chronic) Hypertension (Chronic) Fatty liver disease, nonalcoholic (Chronic) Diabetes mellitus (Chronic) Status post right breast lumpectomy (Acute 10/14/13) Social History Smoking Status: Never smoker Hx Alcohol Use: No Hx Substance Use: No Preferred Language: Lao Communication Ability: Effective Plater Apprentice Required: No Beliefs That Will Affect Care: None Current Living Situation: Family Current Living Situation Comment: with sons Feels Safe at Home: Yes Assistive Devices: Denture - Upper and Glasses Review of Systems 2 Review of Systems: all noted and negative except for above Physical Exam Physical Exam: General- oriented x 3, not in distress, speaks in sentences with no effort or accessory muscle use Weak Head- atraumatic Eyes- PERRL, EOMI, anicteric ENT- oropharynx clear Neck- supple, no JVD, no adenopathy, no thyromegaly; carotids +2/2, no bruits appreciated Lungs- Positive rhonchi bilaterally, scattered, right more than left No wheezing Heart- normal rate, regular rhythm; no murmur, no gallop, no rub appreciated Abdomen- normal bowel sounds, nondistended, soft, nontender, no masses or hepatosplenomegaly No hematoma around the hip area Extremities- no pretibial edema, no calf tenderness; peripheral pulses intact Neuro- alert, oriented x 3; CN 2-12 grossly intact; motor 5/5 bilaterally;sensation 100% on all extremities; no other gross focal neurologic deficits Skin- warm & dry Results & Data Results & Data Vital Signs (Past 12 Hours) Vital Signs Temp Pulse Pulse Resp BP Pulse Ox O2 Del Method 04/30/24 12:48 37.4 C 04/30/24 11:00 97 H 22 122/83 94 Nasal Cannula 04/30/24 10:50 88 18 93 Nasal Cannula 04/30/24 10:16 98 H 04/30/24 10:00 99 H 24 106/72 91 Nasal Cannula 04/30/24 09:52 89 L Nasal Cannula 04/30/24 09:45 38.1 C H 103 H 24 125/75 89 L Room Air O2 Flow Rate 04/30/24 12:48 04/30/24 11:00 2 04/30/24 10:50 2 04/30/24 10:16 04/30/24 10:00 2 04/30/24 09:52 04/30/24 09:45 all noted and reviewed including below Code Status & VTE Plan VTE Prophylaxis Plan VTE Prophylaxis will be ordered: Yes
--- NOTE | 2024-04-30 15:10 | XRay Report ---
XR hip JAE 2v w pelvis CLINICAL HISTORY: fall, r/o fracture COMPARISON STUDY: None FINDINGS: AP pelvis and bilateral hips demonstrates no evidence of acute traumatic injury. There is n o hip fracture or dislocation. There is no pelvic fracture identified. There are degenerative changes in the lower lumbar spine. The bowel gas pattern is nonspecific. There are bilateral arterial calcif ications. IMPRESSION: No evidence of acute traumatic injury involving the pelvis or hips. ACT 112: Negative or not required by law. Electronically signed by: Christine Garnica M.D. 04/30/2024 3:07 PM
[2024-04-30] MEDS: cefTRIAXone SODIUM 2,000 MG/50 ML BAG IV SCH (15:56)
[2024-04-30] MEDS ORDERED: LEVALBUTEROL 1.25 MG/3 ML NEB NEB SCH (16:00)
[2024-04-30] MEDS: DOXYCYCLINE HYCLATE 100 MG CAP PO SCH (16:36)
[2024-04-30] MEDS: guaiFENesin 600 MG TABCR PO SCH (16:36)
[2024-04-30] MEDS: SODIUM CHLORIDE 0.9% 1,000 ML IV SCH (16:39)
[2024-04-30] MEDS ORDERED: ACETAMINOPHEN 325 MG TAB PO PRN (16:51)
[2024-04-30] MEDS: INSULIN ASPART PER UNIT CHARGE SC SCH (18:12)
[2024-04-30] MEDS: LEVALBUTEROL 1.25 MG/3 ML NEB NEB SCH (19:53)
[2024-04-30] MEDS: hydrOXYzine HCl 25 MG TAB PO SCH (21:04)
[2024-04-30] MEDS: HEPARIN SOD 5,000 UNIT/0.5 ML VIAL SQ SCH (21:04)
[2024-04-30] MEDS: OSELTAMIVIR PHOSPHATE SUSP 30 MG/5 ML UDP PO SCH (21:06)
[2024-04-30] MEDS: PRAVASTATIN SOD 40 MG TAB PO SCH (21:06)
[2024-05-01] MEDS: LEVOTHYROXINE SODIUM 25 MCG TABLET PO SCH (05:18)
--- NOTE | 2024-05-01 06:28 | Electrocardiogram Report ---
Test Reason : Blood Pressure : */* mmHG Vent. Rate : 105 BPM Atrial Rate : 105 BPM P-R Int : 176 ms QRS Dur : 108 ms QT Int : 354 ms P-R-T Axes : 67 -59 86 degrees QTcB Int : 467 ms Sinus tachycardia Left axis deviation Incomplete right bundle branch block Minimal voltage criteria for LVH, may be normal variant ( Demario product ) Poor R wave progression, consider anterior RI vs. lead placement vs. LVH Abnormal ECG When compared with ECG of 20-Jul-2023 22:26, Vent. rate has increased by 49 bpm T wave inversion no longer evident in Inferior leads T wave inversion now evident in Lateral leads Confirmed by Antonio Andrade ([id number]) on 05/01/2024 6:28:00 AM Referred By: Confirmed By: Antonio Andrade
[2024-05-01 07:11] LABS: Hematocrit (blood only) 33.5 % (37.0-47.0); Hemoglobin 11.5 g/dl (12.0-16.0); Mean Corpuscular Hgb Conc 34.3 g/dL (32.0-36.0); Mean Corpuscular Volume 87.5 fL (80.0-100.0); Mean Platelet Volume 11.6 fL (9.4-12.4); Platelet Count 96 K/uL (130-400); RDW Coefficient of Variation 13.2 % (11.5-14.5); RDW Standard Deviation 41.9 fL (36.4-46.3); Red Blood Count 3.83 M/uL (4.20-5.40); White Blood Count 7.17 K/ul (4.8-10.8)
[2024-05-01 07:28] LABS: Basophils # (auto) 0.01 K/uL (0.00-0.20); Basophils % (auto) 0.1 %; Immature Granulocytes # (auto) 0.05 K/uL (0.01-0.20); Immature Granulocytes % (auto) 0.7 %; Lymphocytes # (auto) 1.65 K/uL (1.20-3.40); Monocytes % (auto) 9.8 %; Neutrophils # (auto) 4.76 K/uL (1.40-6.50); Neutrophils % (auto) 66.4 %
[2024-05-01 07:42] LABS: Calcium 7.8 mg/dl (8.6-10.3); Potassium 3.2 mmol/L (3.5-5.1)
[2024-05-01 07:48] LABS: BUN Creatinine Ratio 20.2 (10-20)
[2024-05-01] MEDS: POTASSIUM CHLORIDE CRTAB 20 MEQ TABCR PO STA (08:37)
[2024-05-01] MEDS: METOPROLOL SUCC 25MG EXT REL TAB PO SCH (08:37)
[2024-05-01] MEDS: ASPIRIN 81 MG ECTAB PO SCH (08:37)
[2024-05-01 10:06] LABS: Estimated Average Glucose 137 mg/dl; Hemoglobin A1C 6.4 % (4.5-5.6)
--- NOTE | 2024-05-01 12:13 | Hospitalist Progress Note ---
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 Lactic acid normal Started on empiric antibiotics given severity of illness and hypoxia, c/w rocephin and doxy x 5 days. C/w Tamiflu twice daily Nebs every 6 hours, incentive spirometry, flutter valve, Mucinex F/u admitting blood and Sputum culture Pt reports cough getting better and reports gradually feeling better. Monitor and replete electrolytes. Encourage PO intake, finish current IVF order. Resume home diuretics once more stable clinically. Falls, Generalized weakness Secondary #1 Patient fell twice the day before presentation due to generalized weakness Fell on her buttocks, no head trauma. B/L hip xray w/ no acute finding. Denies pain but will check bilateral hip and pelvic x-ray Monitor closely, PT OT eval Other chronic medical problems Paroxysmal A-fib-c/w home aspirin TIA DM type II-insulin sliding scale Hypertension Dyslipidemia Breast cancer s/p radiation and surgery DVT prophylaxis: Heparin subcu. Full code Disposition: PT/OT, CM to assist w/ dc plan. (5) Falls: Admission and Anticipated Discharge Date Admission Date: April 30, 2024 Subjective Patient was seen and examined at bedside. Patient was sitting up in chair, on room air, NAD, was febrile with temperature of 38.1 C yesterday AM, reports feeling better now, reports improving cough. Patient denies sore throat/chest pain. Patient reports eating okay, does have some loose stools. Patient denies pain or burning with passing urine. Physical Exam Physical Exam: General- oriented x 3, not in distress, speaks in sentences with no effort or accessory muscle use Weak Head- atraumatic Eyes- PERRL, EOMI, anicteric ENT- oropharynx clear Neck- supple, no JVD, no adenopathy, no thyromegaly; carotids +2/2, no bruits appreciated Lungs- Positive rhonchi bilaterally, scattered, right more than left No wheezing Heart- normal rate, regular rhythm; no murmur, no gallop, no rub appreciated Abdomen- normal bowel sounds, nondistended, soft, nontender, no masses or hepatosplenomegaly No hematoma around the hip area Extremities- no pretibial edema, no calf tenderness; peripheral pulses intact Neuro- alert, oriented x 3; CN 2-12 grossly intact; motor 5/5 bilaterally;sensation 100% on all extremities; no other gross focal neurologic deficits Skin- warm & dry Results & Data Results & Data Vital Signs (Past 12 Hours) Vital Signs Temp Pulse Pulse Resp BP Pulse Ox O2 Del Method 05/01/24 07:37 36.5 C 84 16 131/69 96 Nasal Cannula 05/01/24 07:31 78 05/01/24 07:18 84 16 96 Nasal Cannula 05/01/24 02:52 36.7 C 81 18 124/68 95 Nasal Cannula O2 Flow Rate 05/01/24 07:37 2 05/01/24 07:31 05/01/24 07:18 2 05/01/24 02:52 2 (2) Acute bronchitis Bronchitis organism: other organism Qualified Code(s): J20.8 - Acute bronchitis due to other specified organisms
[2024-05-01] MEDS ORDERED: LEVALBUTEROL 1.25 MG/3 ML NEB NEB PRN (13:47)
[2024-05-01] MEDS: BENZONATATE 100 MG CAPSULE PO PRN (17:43)
[2024-05-02 04:48] VITALS: RESP 16
[2024-05-02 06:26] LABS: Hematocrit (blood only) 33.5 % (37.0-47.0); Hemoglobin 11.5 g/dl (12.0-16.0); Mean Corpuscular Hemoglobin 30.1 pg (25.0-34.0); Mean Corpuscular Hgb Conc 34.3 g/dL (32.0-36.0); Mean Corpuscular Volume 87.7 fL (80.0-100.0); Mean Platelet Volume 11.3 fL (9.4-12.4); Platelet Count 103 K/uL (130-400); RDW Coefficient of Variation 13.2 % (11.5-14.5); RDW Standard Deviation 42.3 fL (36.4-46.3); Red Blood Count 3.82 M/uL (4.20-5.40)
[2024-05-02 06:41] LABS: BUN Creatinine Ratio 20.2 (10-20); Creatinine Clr Calc Pharmacy 56.6 ml/min; Magnesium 1.5 mg/dl (1.7-2.4); Phosphorus 1.8 mg/dl (2.5-4.9); Potassium 3.3 mmol/L (3.5-5.1)
[2024-05-02] MEDS ORDERED: POTASSIUM PHOS 3 MMOL/1 ML INFUSION IV STA (08:00)
[2024-05-02] MEDS: MAGNESIUM SULFATE / D5W 1 GM/100 ML BAG IV SCH (08:50)
[2024-05-02] MEDS: POTASSIUM PHOSPHATE 30 MMOL in SODIUM CHLORIDE 0.9% 500 ML IV ONE (08:51)
[2024-05-02 11:57] VITALS: BP 135/76; TEMP 97.7; O2SAT 93
--- NOTE | 2024-05-02 14:48 | Hospitalist Progress Note ---
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 Lactic acid normal on empiric antibiotics given severity of illness and hypoxia, c/w rocephin and doxy x 5 days. C/w Tamiflu twice daily Nebs every 6 hours, incentive spirometry, flutter valve, Mucinex Continue PT OT Falls, Generalized weakness Secondary #1 Patient fell twice the day before presentation due to generalized weakness Fell on her buttocks, no head trauma. B/L hip xray w/ no acute finding. Denies pain but will check bilateral hip and pelvic x-ray Monitor closely, PT OT eval Other chronic medical problems Paroxysmal A-fib-c/w home aspirin TIA- continue aspirin DM type II-insulin sliding scale Hypertension- continue metoprolol and losartan Dyslipidemia- continue pravastatin Breast cancer s/p radiation and surgery DVT prophylaxis: Heparin subcu. Full code Disposition: PT/OT, CM to assist w/ dc plan. Please note the above document was generated using voice recognition software. It may contain grammatical, syntax or spelling errors. Any formal questions or concerns about the content, text or information contained within the body of this dictation should be directly addressed to the provider for clarification (5) Falls: Admission and Anticipated Discharge Date Admission Date: April 30, 2024 Subjective Patient seen and examined at bedside. She is comfortable; not in distress She reports feeling better overall Vital signs are stable and she is saturating well on room air. Review of Systems Review of Systems: All systems reviewed & are unremarkable except as noted in Subjective Physical Exam Physical Exam: General- oriented x 3, not in distress, speaks in sentences with no effort or accessory muscle use Neck- supple, no JVD, no adenopathy, no thyromegaly; carotids +2/2, no bruits appreciated Lungs- Bilateral clear breath sound Heart- normal rate, regular rhythm; no murmur, no gallop, no rub appreciated Abdomen- normal bowel sounds, nondistended, soft, nontender, no masses or hepatosplenomegaly No hematoma around the hip area Extremities- no pretibial edema, no calf tenderness; peripheral pulses intact Neuro- alert, oriented x 3; CN 2-12 grossly intact; motor 5/5 bilaterally;sensation 100% on all extremities; no other gross focal neurologic deficits Skin- warm & dry Results & Data Results & Data Vital Signs (Past 12 Hours) Vital Signs Temp Pulse Pulse Resp BP Pulse Ox O2 Del Method 05/02/24 11:45 36.5 C 59 L 16 135/76 93 Room Air 05/02/24 08:00 Room Air 05/02/24 07:58 36.9 C 62 16 128/76 90 Room Air 05/02/24 07:31 62 05/02/24 04:46 36.7 C 71 16 136/62 91 Room Air (2) Acute bronchitis Bronchitis organism: other organism Qualified Code(s): J20.8 - Acute bronchitis due to other specified organisms
--- NOTE | 2024-05-02 15:36 | Discharge Summary ---
Date of Service May 02, 2024 Admission HPI Per Admitting Provider Patient is a 78-year-old female with history of paroxysmal A-fib, TIA, diabetes type 2, hypertension, dyslipidemia, right breast cancer status postsurgery and radiation therapy, subclinical hypothyroidism, presenting with cough, fever and weakness since Monday, 4 days ago. History obtained from patient and also daughters at the bedside. Last Monday, patient started to develop productive cough, associated with fever, congestion, weakness. Symptoms persisted through the weekend. Yesterday, patient CO2 alarm went off, and patient was brought to [place] [facility]. CO2 level was minimal and patient was discharged to home. Fire department crew went to the patient's house, aired out the entire house and CO2 was then undetectable at the time the patient return to home. Patient also had 2 episodes of falls last evening due to weakness, legs giving out. Patient fell on her buttocks, no head trauma. Due to persistence of cough, weakness, patient was brought to the emergency room at [facility]. Upon arrival, blood pressure 125/75, 89% on room air, heart rate 103, temperature 38.1. BioFire positive for flu Chest x-ray no pneumonia Patient given Xopenex nebulizer treatment, Tamiflu, Tessalon Perle and IV fluids On exam, patient seen sitting up in bed, on 2 L of O2, comfortable, not in distress States breathing is improving, but still feels very weak No active chest pain, nausea, palpitations during my exam. Admission Exam Per Admitting Provider Weak Head- atraumatic Eyes- PERRL, EOMI, anicteric ENT- oropharynx clear Neck- supple, no JVD, no adenopathy, no thyromegaly; carotids +2/2, no bruits appreciated Lungs- Positive rhonchi bilaterally, scattered, right more than left No wheezing Heart- normal rate, regular rhythm; no murmur, no gallop, no rub appreciated Abdomen- normal bowel sounds, nondistended, soft, nontender, no masses or hepatosplenomegaly No hematoma around the hip area Extremities- no pretibial edema, no calf tenderness; peripheral pulses intact Neuro- alert, oriented x 3; CN 2-12 grossly intact; motor 5/5 bilaterally;sensation 100% on all extremities; no other gross focal neurologic deficits Skin- warm & dry Principal Diagnosis Influenza A Discharge Exam General- oriented x 3, not in distress, speaks in sentences with no effort or accessory muscle use Neck- supple, no JVD, no adenopathy, no thyromegaly; carotids +2/2, no bruits appreciated Lungs- Bilateral clear breath sound Heart- normal rate, regular rhythm; no murmur, no gallop, no rub appreciated Abdomen- normal bowel sounds, nondistended, soft, nontender, no masses or hepatosplenomegaly No hematoma around the hip area Extremities- no pretibial edema, no calf tenderness; peripheral pulses intact Neuro- alert, oriented x 3; CN 2-12 grossly intact; motor 5/5 bilaterally;sensation 100% on all extremities; no other gross focal neurologic deficits Skin- warm & dry Discharge Data Allergies Allergy/AdvReac Type Severity Reaction Status Date / Time No Known Allergies Allergy Verified 04/30/24 11:38 Consultations 04/30/24 11:46 ED Decision to Admit Stat Hospital Course (1) Acute respiratory failure with hypoxia: (2) Acute bronchitis: (3) Influenza A: (4) Generalized weakness: (5) Falls: Plan 78-year-old female with history of paroxysmal A-fib, TIA, diabetes type 2, hypertension, dyslipidemia, right breast cancer status postsurgery and radiation therapy, subclinical hypothyroidism, presenting with cough, fever and 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 She is being managed for the following: Acute hypoxic Respiratory failure secondary to acute bronchitis, influenza A infection Generalized Weakness Mechanical Fall Admitted with hypoxia, febrile, tachycardic Bio-Fire positive for influenza A Chest x-ray: No pneumonia. Lactic acid normal. Patient was admitted to the hospital; started on Tamiflu for influenza A. Oxygen was weaned off gradually. PT OT evaluation was done; patient was able to walk with rolling walker. Discussed with patient's daughter to monitor patient over the next few days as she recovers from the flu at the time of discharge. Please note the above document was generated using voice recognition software. It may contain grammatical, syntax or spelling errors. Any formal questions or concerns about the content, text or information contained within the body of this dictation should be directly addressed to the provider for clarification. Total Time Total Time Spent Total Time Spent (In Minutes): 45 Total Time Includes: Examination of the Patient, Discharge Planning, Medication Reconciliation, Communication With Other Providers and Other Discharge Plan Discharge Items Patient Disposition: Home - Self-Care Reason For Visit: FLU, HYPOXIA Discharge Diagnosis: Influenza A Activity: Resume your previous activity Non-emergency contact: Primary Care Provider Call non-emergency contact if: you have any medication questions and your symptoms worsen Follow-up/Referrals: Yanira Mo CRNP [Primary Care Provider] - Diet: Regular Addtl Attending Provider Instructions: You were admitted to the hospital with with the flu. You are prescribed Tamiflu to be taken twice a day for 3 more days to complete the course. You are also prescribed magnesium oxide for low magnesium level. Please do not take hydrochlorothiazide for next 3 days as it can cause dehydration. You can resume it on 05/06/2024. Pending Studies at Discharge: No Stand-Alone Forms: My [facility] [employer], Smoking Cessation Medications and DC Order Prescriptions: New oseltamivir [Tamiflu] 6 mg/mL Suspension For Reconstitution 30 mg PO BID 3 Days Qty: 30 0RF magnesium oxide [MgO] 400 mg (241.3 mg magnesium) tablet 400 mg PO DAILY Qty: 30 0RF Continued losartan 50 mg tablet 50 mg PO DAILY pravastatin 40 mg tablet 40 mg PO HS glimepiride 1 mg tablet 1 mg PO DAILY potassium chloride 20 mEq tablet,ER particles/crystals 20 meq PO DAILY ascorbic acid (vitamin C) [Vitamin C] 500 mg Tablet 500 mg PO DAILY docusate sodium 100 mg Capsule 100 mg PO DAILY metoprolol succinate 25 mg tablet extended release 24 hr 25 mg PO DAILY Januvia 100 mg tablet 50 mg PO DAILY omeprazole 20 mg Tablet,Delayed Release (Dr/Ec) 20 mg PO DAILY PRN (Reason: HEARTBURN/INDIGESTION) levothyroxine [Synthroid] 25 mcg Tablet 25 mcg PO DAILYBB Qty: 30 0RF aspirin 81 mg Tablet,Delayed Release (Dr/Ec) 81 mg PO DAILY hydroxyzine HCl 25 mg tablet 25 mg PO HS Held hydrochlorothiazide 25 mg tablet 25 mg PO DAILY Hold Instructions: Resume on 05/06/24. Discharge Orders: Discharge Order (Routine); Ordered 05/02/24 Ordered By: Santosh Crawford/Other Patient Handouts: Managing Type 2 Diabetes Admission Data Admit Date/Time: 04/30/24 12:36 Attending Provider: Santosh Wong Admit Provider: Dagoberto Snell Primary Care Provider: Yanira Mo Other Providers: Dagoberto Snell
[2024-05-02 16:21] VITALS: PULSE 82
--- NOTE | 2024-05-06 11:24 | Coding Query ---
To promote full compliance with coding requirements relating to patient care, provider participation is requested in all cases of roll on man uncertainty. Please assist us with the question(s) below: Coding Question(s): The diagnosis(es) below was documented in the (progress notes) then subsequently fell off all further documentation. Please indicate if it is still a possible diagnosis or ruled out. Physician's Response(s): SEPSIS ( ) Diagnosed and POA ( ) Diagnosed and not POA ( X ) Ruled out ( ) Other (please specify) MTDD
== END 2024-05-02 17:19 | disposition home or self-care (01) | DRG 193 ==
LOC: ED 09:40 → 2W 12:36 → SUATTDRO 12:36 → 2W 15:00